=== PATIENT | female | born 1935 | race Two or more races ===

== ENCOUNTER 2016-11-20 12:00 | Inpatient (IN) | payer SELFPAY ==
[2016-11-20] VITALS (9 sets, daily range): BP systolic 120–210; BP diastolic 60–104
[~2016-11-20] VITALS: Ht 165.1 cm; Wt 65.8 kg
[~2016-11-20 12:00] MED LIST: Morphine Sulfate 2mg/ml Inj IVP ONE
--- NOTE | 2016-11-20 12:26 | Emergency Room Report ---
History of Present Illness General Chief Complaint: Altered Level of Consciousness Source: Family Member, EMS Present Illness HPI Patient presents with 2 problems. One is right thigh pain and the second is vomiting. It's uncertain how long this is been going on because she recently had right hip surgery. The daughter states that she is deaf and has dementia and therefore it's difficult to find out what the problem is. Before today she' s been eating but not very well. She also has pain when she urinates. She moved her bowels one hour before presenting to the emergency department. She denies any chest pain or shortness of breath. Daughter is asking for ointment for external genitalia. She was evaluated at [facility] on November [address] pulmonary angiogram done which was negative. She is deaf and has dementia. Daughter states she knows sign language (not certain what language). Daughter states she is also slightly more confused than usual. Apparently travelling and due to return Sunday. Allergies: Coded Allergies: No Known Allergies (Unverified , 11/20/16) Patient History Limited by: language barrier, medical condition Past Medical History: see triage record Past Surgical History: other - R hip surgery Social History: Denies: alcohol use, smoking Social History Narrative with daughter - travelling Reviewed Nursing Documentation: PMH: Agreed, PSxH: Agreed Nursing Documentation-PMH Past Medical History: No History, Except For Hx Diabetes: Yes History Of Psychiatric Problem: Yes - ALZHEIMER Review of Systems All Other Systems: limited Physical Exam Vital Signs Date Time Temp Pulse Resp B/P Pulse Ox O2 Delivery O2 Flow Rate FiO2 11/20/16 11:43 97.7 116 20 204/111 100 Room Air Sp02 EP Interpretation: reviewed, normal General Appearance: alert, mild distress - when touched by staff, other - frail Head: normocephalic Eyes: bilateral eye PERRL, bilateral eye normal inspection ENT: moist mucus membranes Neck: supple Respiratory: lungs clear, normal breath sounds Cardiovascular #1: regular rate, rhythm Cardiovascular #2: 2+ radial (R) Gastrointestinal: normal inspection, normal bowel sounds, non tender, no mass, non-distended Genitourinary: other - no gross rashes Musculoskeletal: back normal, normal range of motion, tender - R leg, hard to tell where Neurologic: alert, responsive, motor strength/tone normal, DTRs symmetric, sensory intact Psychiatric: depressed affect, anxious Skin: normal inspection, warm/dry Medical Decision Making Diagnostic Impression: Primary Impression: Persistent vomiting Additional Impressions: Right leg pain Dementia Qualified Codes: G30.9 - Alzheimer's disease, unspecified; F02.80 - Dementia in other diseases classified elsewhere without behavioral disturbance Leukocytosis Qualified Codes: D72.829 - Elevated white blood cell count, unspecified ER Course Patient with vomiting and R leg pain. Very complicated patient with language and neurologic limitations. Considerations: electrolyte abnormalities, GItis, pancreatitis, occult infection, acute NE amongst others. Evaluation with EKG, xrays, labs. IV hydration and zofran ordered. Also analgesia ordered. Non- invasive vasc study. Exam against thigh fracture. Consider strain, arthritis. Eval remarkable for leukocytosis. CXR - senile chest, abd - no obstruction (hip ), UA clear, Patient improved with treatment. Long discussion with court monitor. Laboratory Tests Test 11/20/16 12:30 11/21/16 05:20 White Blood Count 12.1 K/UL (4.8-10.8) H 11.7 K/UL (4.8-10.8) H Red Blood Count 4.65 M/UL (4.20-5.40) 3.89 M/UL (4.20-5.40) L Hemoglobin 13.0 G/DL (12.0-16.0) 11.5 G/DL (12.0-16.0) L Hematocrit 41.5 % (37.0-47.0) 35.7 % (37.0-47.0) L Mean Corpuscular Volume 89 FL (80-99) 92 FL (80-99) Mean Corpuscular Hemoglobin 28.0 PG (27.0-31.0) 29.5 PG (27.0-31.0) Mean Corpuscular Hemoglobin Concent 31.4 G/DL (32.0-36.0) L 32.1 G/DL (32.0-36.0) Red Cell Distribution Width 13.4 % (11.6-14.8) 14.1 % (11.6-14.8) Platelet Count 415 K/UL (150-450) 336 K/UL (150-450) Mean Platelet Volume 5.8 FL (6.5-10.1) L 5.5 FL (6.5-10.1) L Neutrophils (%) (Auto) 77.6 % (45.0-75.0) H 62.3 % (45.0-75.0) Lymphocytes (%) (Auto) 15.6 % (20.0-45.0) L 24.4 % (20.0-45.0) Monocytes (%) (Auto) 5.6 % (1.0-10.0) 7.1 % (1.0-10.0) Eosinophils (%) (Auto) 1.0 % (0.0-3.0) 5.7 % (0.0-3.0) H Basophils (%) (Auto) 0.3 % (0.0-2.0) 0.6 % (0.0-2.0) Prothrombin Time 11.1 SEC (9.30-11.50) Prothrombin Time INR 1.1 (0.9-1.1) PTT 25 SEC (23-33) Urine Color Pale yellow Urine Appearance Clear Urine pH 8 (4.5-8.0) Urine Specific [place] 1.010 (1.005-1.035) Urine Protein 2+ (NEGATIVE) H Urine Glucose (UA) Negative (NEGATIVE) Urine Ketones Negative (NEGATIVE) Urine Occult Blood Negative (NEGATIVE) Urine Nitrite Negative (NEGATIVE) Urine Bilirubin Negative (NEGATIVE) Urine Urobilinogen Normal MG/DL (0.0-1.0) Urine Leukocyte Esterase Negative (NEGATIVE) Urine RBC 0-2 /HPF (0 - 2) Urine WBC 0-2 /HPF (0 - 2) Urine Squamous Epithelial Cells Few /LPF (NONE/OCC) Urine Bacteria Few /HPF (NONE) Sodium Level 134 mEQ/L (135-145) L 141 mEQ/L (135-145) Potassium Level 3.8 mEQ/L (3.4-4.9) 3.6 mEQ/L (3.4-4.9) Chloride Level 92 mEQ/L (98-107) L 102 mEQ/L (98-107) Carbon Dioxide Level 30 mEQ/L (20-30) 31 mEQ/L (20-30) H Anion Gap 12 (5-15) 8 (5-15) Blood Urea Nitrogen 19 mg/dL (7-23) 23 mg/dL (7-23) Creatinine 0.8 mg/dL (0.5-0.9) 0.7 mg/dL (0.5-0.9) Estimate Glomerular Filtration Rate mL/min (>60) mL/min (>60) Glucose Level 267 mg/dL (74-106) H 110 mg/dL (74-106) #H Lactic Acid Level 1.20 mmol/L (0.66-2.22) Uric Acid 4.2 mg/dL (3.0-7.5) Calcium Level 9.2 mg/dL (8.6-10.2) 8.5 mg/dL (8.6-10.2) L Total Bilirubin 0.3 mg/dL (0.0-1.2) 0.2 mg/dL (0.0-1.2) Aspartate Amino Transferase (AST) 13 U/L (5-40) 10 U/L (5-40) Alanine Aminotransferase (ALT) 16 U/L (3-33) 12 U/L (3-33) Alkaline Phosphatase 117 U/L (35-104) H 103 U/L (35-104) Troponin I < 0.30 ng/mL (<=0.30) Pro-B-Type Natriuretic Peptide 1198 pg/mL (0-450) H Total Protein 7.3 g/dL (6.6-8.7) 6.3 g/dL (6.6-8.7) L Albumin 3.6 g/dL (3.5-5.2) 3.2 g/dL (3.5-5.2) L Globulin 3.7 g/dL 3.1 g/dL Albumin/Globulin Ratio 0.9 (1.0-2.7) L 1.0 (1.0-2.7) Lipase 28 U/L (< 60) Triglycerides Level 147 mg/dL (< 150) Cholesterol Level 127 mg/dL (< 200) LDL Cholesterol 70 mg/dL (60-99) HDL Cholesterol 28 mg/dL (> 60) Cholesterol/HDL Ratio 4.5 (3.3-4.4) H EKG Diagnostic Results Rate: normal Rhythm: NSR ST Segments: no acute changes Rhythm Strip Diag. Results EP Interpretation: yes Rhythm: NSR, no PVC's, no ectopy Chest X-Ray Diagnostic Results Chest X-Ray Diagnostic Results : Chest X-Ray Ordered: Yes # of Views/Limited/Complete: 1 View Indication: Other EP Interpretation: Yes Interpretation: no consolidation, no effusion, no pneumothorax, other - old gran disease Impression: No acute disease Interpreting ER Provider: signed Kory Dennis MD Other X-Ray Diagnostic Results Other X-Ray Diagnostic Results : X-Ray ordered: abd # of Views/Limited Vs Complete: 1 View Indication: Other EP Interpretation: Yes Interpretation: nonspecific bowel gas, no sbo, other - R hip Impression: No acute disease Interpreting ER Provider: signed Kory Dennis MD CT/MRI/US Diagnostic Results CT/MRI/US Diagnostic Results : Imaging Test Ordered: non-invasive vasc Impression bilat, no DVT Status: improved Disposition: ADMITTED INPATIENT Condition: Serious Kory Dennis M.D. Nov 20, 2016 12:26
[2016-11-20 12:55] LABS: BASOPHILS % (AUTO) 0.3 % (0.0-2.0); LYMPHOCYTES % (AUTO) 15.6 % (20.0-45.0); MEAN CORPUSCULAR HGB CONC 31.4 G/DL (32.0-36.0); MEAN CORPUSCULAR VOLUME 89 FL (80-99); MEAN PLATELET VOLUME 5.8 FL (6.5-10.1); MONOCYTES % (AUTO) 5.6 % (1.0-10.0); NEUTROPHILS % (AUTO) 77.6 % (45.0-75.0); PLATELET COUNT 415 K/UL (150-450); RED BLOOD COUNT 4.65 M/UL (4.20-5.40); RED CELL DISTRIBUTION WIDTH 13.4 % (11.6-14.8); WHITE BLOOD COUNT 12.1 K/UL (4.8-10.8)
[2016-11-20 13:01] LABS: APPEARANCE,URINE CLEAR; KETONES,URINE NEGATIVE (NEGATIVE); LEUKOCYTE ESTERASE ,URINE NEGATIVE (NEGATIVE); NITRITE,URINE NEGATIVE (NEGATIVE); PH,URINE 8 (4.5-8.0); PROTEIN,URINE 2+ (NEGATIVE); UROBILINOGEN,URINE NORMAL MG/DL (0.0-1.0)
[2016-11-20 13:06] LABS: INR 1.1 (0.9-1.1); PROTHROMBIN TIME 11.1 SEC (9.30-11.50)
[2016-11-20 13:10] LABS: TROPONIN I < 0.30 ng/mL (<=0.30)
[2016-11-20 13:14] LABS: ALANINE AMINOTRANSFERASE 16 U/L (3-33); ALBUMIN/GLOBULIN RATIO 0.9 (1.0-2.7); ANION GAP 12 (5-15); ASPARTATE AMINO TRANSFERASE 13 U/L (5-40); CALCIUM 9.2 mg/dL (8.6-10.2); CARBON DIOXIDE 30 mEQ/L (20-30); CHLORIDE 92 mEQ/L (98-107); CREATININE 0.8 mg/dL (0.5-0.9); HEMOLYSIS 10; LIPASE 28 U/L (< 60); POTASSIUM 3.8 mEQ/L (3.4-4.9); SODIUM 134 mEQ/L (135-145); TOTAL PROTEIN 7.3 g/dL (6.6-8.7)
[2016-11-20 13:18] LABS: BACTERIA,URINE FEW /HPF; RBC,URINE 0-2 /HPF (0 - 2); SQUAMOUS EPITHELIAL CELL,UR FEW /LPF (NONE/OCC); WBC,URINE 0-2 /HPF (0 - 2)
[2016-11-20] MEDS ORDERED: Morphine Sulfate 4mg/ml Inj IVP ONE (13:45)
[2016-11-20] MEDS ORDERED: ASPIR 8181 MG ORAL (14:24)
[2016-11-20] MEDS ORDERED: EXELON1 EACH TD (14:24)
[2016-11-20] MEDS ORDERED: LANTUS SOL100 UNIT/1 SUBQ (14:24)
[2016-11-20] MEDS ORDERED: LISINOPRIL5 MG ORAL (14:24)
[2016-11-20] MEDS ORDERED: LIPITOR40 MG ORAL (14:24)
[2016-11-20] MEDS ORDERED: Morphine Sulfate 2mg/ml Inj IVP PRN (15:30)
[2016-11-20] MEDS ORDERED: Mylanta II UD 30ml ORAL PRN (15:30)
[2016-11-20] MEDS ORDERED: LORazepam Inj 2mg/ml 1ml IV PRN (15:30)
[2016-11-20] MEDS ORDERED: Bacitracin Oint 15gm Tube TOPIC ONE (15:34)
[2016-11-20] MEDS ORDERED: Bacitracin Oint UD TOPIC ONE (15:45)
--- NOTE | 2016-11-20 16:25 | Diagnostic Imaging Report ---
Indication: Chest pain Technique: One view of the chest Comparison: None Findings: There is diffuse bilateral mild interstitial prominence and central bronchial wall thickening, acuity indeterminate. Calcifications are seen in the left pulmonary hilum and left paratracheal region. There is an old healed fracture deformity left shoulder. No acute infiltrates or effusions. Impression: Bilateral mild interstitial prominence and central bronchial wall thickening, acuity indeterminate the suspect on the basis of chronic senescent changes. Correlate with clinical findings Evidence of old granulomatous disease within the pulmonary island Old healed left shoulder fracture
--- NOTE | 2016-11-20 18:57 | History and Physical ---
History of Present Illness General Date patient seen: Nov 20, 2016 Reason for Hospitalization: Altered Level of Consciousness Present Illness HPI 81 year old female with hx of dementia, DM, HTN, brought in with CC of vomiting and hip pain. Before today she's been eating but not very well. She also has pain when she urinates. She was evaluated at [facility] on November [address] pulmonary angiogram done which was negative. Allergies: Coded Allergies: No Known Allergies (Unverified , 11/20/16) Medication History Scheduled Aspirin* (Aspir 81*), 81 MG ORAL DAILY, (Reported) Atorvastatin Calcium* (Lipitor*), Unknown Dose ORAL BEDTIME, (Reported) Escitalopram Oxalate (Escitalopram Oxalate*), 10 MG ORAL DAILY, (Reported) Insulin Glargine (Lantus), Unknown Dose SUBQ BEDTIME, (Reported) Lisinopril (Lisinopril*), Unknown Dose ORAL DAILY, (Reported) Miscellaneous Medications Rivastigmine (Exelon), Unknown Dose TD, (Reported) Patient History Healthcare decision maker Resuscitation status Advanced Directive on File Past Medical/Surgical History Past Medical/Surgical History: (1) Diabetes mellitus (2) Hypertension Review of Systems All Other Systems: negative except mentioned in HPI Physical Exam General Appearance: cachetic Lines, tubes and drains: peripheral, central line HEENT: normocephalic, atraumatic Neck: non-tender, normal alignment Respiratory/Chest: chest wall non-tender, normal breath sounds Cardiovascular/Chest: normal peripheral pulses, normal rate Abdomen: normal bowel sounds Last 24 Hour Vital Signs Date Time Temp Pulse Resp B/P Pulse Ox O2 Delivery O2 Flow Rate FiO2 11/20/16 18:35 98.0 83 20 171/88 100 Room Air 11/20/16 18:16 98.0 81 16 154/90 98 Room Air 11/20/16 18:10 98.2 83 18 154/90 100 Nasal Cannula 11/20/16 15:00 74 16 120/100 98 Room Air 11/20/16 14:45 77 16 135/60 100 Nasal Cannula 11/20/16 14:30 77 15 146/65 90 Room Air 11/20/16 14:09 76 18 186/90 98 Room Air 11/20/16 14:09 181/67 11/20/16 13:40 98.0 11/20/16 13:00 78 18 210/104 98 Room Air 11/20/16 12:00 98.0 70 20 190/88 96 Room Air 11/20/16 11:43 97.7 116 20 204/111 100 Room Air Laboratory Tests Test 11/20/16 12:30 White Blood Count 12.1 K/UL (4.8-10.8) H Red Blood Count 4.65 M/UL (4.20-5.40) Hemoglobin 13.0 G/DL (12.0-16.0) Hematocrit 41.5 % (37.0-47.0) Mean Corpuscular Volume 89 FL (80-99) Mean Corpuscular Hemoglobin 28.0 PG (27.0-31.0) Mean Corpuscular Hemoglobin Concent 31.4 G/DL (32.0-36.0) L Red Cell Distribution Width 13.4 % (11.6-14.8) Platelet Count 415 K/UL (150-450) Mean Platelet Volume 5.8 FL (6.5-10.1) L Neutrophils (%) (Auto) 77.6 % (45.0-75.0) H Lymphocytes (%) (Auto) 15.6 % (20.0-45.0) L Monocytes (%) (Auto) 5.6 % (1.0-10.0) Eosinophils (%) (Auto) 1.0 % (0.0-3.0) Basophils (%) (Auto) 0.3 % (0.0-2.0) Prothrombin Time 11.1 SEC (9.30-11.50) Prothromb Time International Ratio 1.1 (0.9-1.1) Activated Partial Thromboplast Time 25 SEC (23-33) Urine Color Pale yellow Urine Appearance Clear Urine pH 8 (4.5-8.0) Urine Specific [place] 1.010 (1.005-1.035) Urine Protein 2+ (NEGATIVE) H Urine Glucose (UA) Negative (NEGATIVE) Urine Ketones Negative (NEGATIVE) Urine Occult Blood Negative (NEGATIVE) Urine Nitrite Negative (NEGATIVE) Urine Bilirubin Negative (NEGATIVE) Urine Urobilinogen Normal MG/DL (0.0-1.0) Urine Leukocyte Esterase Negative (NEGATIVE) Urine RBC 0-2 /HPF (0 - 2) Urine WBC 0-2 /HPF (0 - 2) Urine Squamous Epithelial Cells Few /LPF (NONE/OCC) Urine Bacteria Few /HPF (NONE) Sodium Level 134 mEQ/L (135-145) L Potassium Level 3.8 mEQ/L (3.4-4.9) Chloride Level 92 mEQ/L (98-107) L Carbon Dioxide Level 30 mEQ/L (20-30) Anion Gap 12 (5-15) Blood Urea Nitrogen 19 mg/dL (7-23) Creatinine 0.8 mg/dL (0.5-0.9) Estimat Glomerular Filtration Rate mL/min (>60) Glucose Level 267 mg/dL (74-106) H Lactic Acid Level 1.20 mmol/L (0.66-2.22) Uric Acid 4.2 mg/dL (3.0-7.5) Calcium Level 9.2 mg/dL (8.6-10.2) Total Bilirubin 0.3 mg/dL (0.0-1.2) Aspartate Amino Transf (AST/SGOT) 13 U/L (5-40) Alanine Aminotransferase (ALT/SGPT) 16 U/L (3-33) Alkaline Phosphatase 117 U/L (35-104) H Troponin I < 0.30 ng/mL (<=0.30) Pro-B-Type Natriuretic Peptide 1198 pg/mL (0-450) H Total Protein 7.3 g/dL (6.6-8.7) Albumin 3.6 g/dL (3.5-5.2) Globulin 3.7 g/dL Albumin/Globulin Ratio 0.9 (1.0-2.7) L Lipase 28 U/L (< 60) Height (Feet): 5 Height (Inches): 5.00 Weight (Pounds): 145 Medications Current Medications Medications (Trade) Dose Ordered Sig/Maggi Route PRN Reason Start Time Stop Time Status Last Admin Dose Admin Acetaminophen (Tylenol) 650 mg Q4H PRN ORAL T>100.5 11/20/16 15:30 12/20/16 15:29 Al Hydroxide/Mg Hydroxide (Mylanta II) 30 ml Q6H PRN ORAL dyspepsia 11/20/16 15:30 12/20/16 15:29 Dextrose (Dextrose 50%) STAT PRN IV Hypoglycemia 11/20/16 15:30 12/20/16 15:29 Heparin Sodium (Porcine) (Heparin 5000 units/ml) 5,000 units EVERY 12 HOURS SUBQ 11/20/16 21:00 12/20/16 20:59 Insulin Aspart (NovoLOG) BEFORE MEALS AND HS SUBQ 11/20/16 21:00 12/20/16 20:59 Lisinopril (Zestril) 5 mg DAILY ORAL 11/21/16 09:00 12/21/16 08:59 Lorazepam (Ativan 2mg/ml 1ml) 0.5 mg Q4H PRN IV For Anxiety 11/20/16 15:30 11/27/16 15:29 Morphine Sulfate (Morphine Sulfate) 1 mg Q4H PRN IVP PAIN 4-10 11/20/16 15:30 11/27/16 15:29 Ondansetron HCl (Zofran) 4 mg Q6H PRN IVP Nausea & Vomiting 11/20/16 15:30 12/20/16 15:29 Polyethylene Glycol (Miralax) 17 gm HSPRN PRN ORAL Constipation 11/20/16 21:00 12/20/16 20:59 Sodium Chloride (Sodium Chloride 1000ml bag) 1,000 ml @ 200 mls/hr Q5H IV 11/20/16 12:00 12/20/16 11:59 11/20/16 12:49 Zolpidem Tartrate (Ambien) 5 mg HSPRN PRN ORAL Insomnia 11/20/16 21:00 12/20/16 20:59 Assessment/Plan Problem List: (1) Acute encephalopathy ICD Codes: G93.40 - Encephalopathy, unspecified SNOMED: 1977963 (2) Sepsis ICD Codes: A41.9 - Sepsis, unspecified organism SNOMED: 02047365 (3) UTI (urinary tract infection) ICD Codes: N39.0 - Urinary tract infection, site not specified SNOMED: 98407949 Assessment/Plan marquez culture iv antibiotics check cultures neuro evaluation dvt prophylaxis WILMA ARECHIGA Nov 20, 2016 18:57
[2016-11-20] MEDS: Heparin 5000 units/ml inj SUBQ SCH (20:42)
[2016-11-20] MEDS: NovoLOG Insulin Flexpen SUBQ SCH (20:43)
[2016-11-20] MEDS ORDERED: Zolpidem 5mg tab ORAL PRN (21:00)
[2016-11-20] MEDS ORDERED: Miralax 17gm pkt ORAL PRN (21:00)
[2016-11-20] MEDS ORDERED: ESCITALOPRAM OX10 MG ORAL (21:23)
[2016-11-21] VITALS (7 sets, daily range): BP systolic 137–207; BP diastolic 60–108
[2016-11-21 06:21] LABS: BASOPHILS % (AUTO) 0.6 % (0.0-2.0); EOSINOPHILS % (AUTO) 5.7 % (0.0-3.0); LYMPHOCYTES % (AUTO) 24.4 % (20.0-45.0); MEAN CORPUSCULAR HEMOGLOBIN 29.5 PG (27.0-31.0); MEAN CORPUSCULAR HGB CONC 32.1 G/DL (32.0-36.0); MEAN CORPUSCULAR VOLUME 92 FL (80-99); MEAN PLATELET VOLUME 5.5 FL (6.5-10.1); MONOCYTES % (AUTO) 7.1 % (1.0-10.0); NEUTROPHILS % (AUTO) 62.3 % (45.0-75.0); PLATELET COUNT 336 K/UL (150-450); RED BLOOD COUNT 3.89 M/UL (4.20-5.40); RED CELL DISTRIBUTION WIDTH 14.1 % (11.6-14.8); WHITE BLOOD COUNT 11.7 K/UL (4.8-10.8)
[2016-11-21] MEDS: NovoLOG Insulin Flexpen SUBQ SCH ×4 (06:22→20:54)
[2016-11-21 06:32] LABS: ALANINE AMINOTRANSFERASE 12 U/L (3-33); ANION GAP 8 (5-15); ASPARTATE AMINO TRANSFERASE 10 U/L (5-40); CALCIUM 8.5 mg/dL (8.6-10.2); CARBON DIOXIDE 31 mEQ/L (20-30); CHLORIDE 102 mEQ/L (98-107); CHOLESTEROL 127 mg/dL (< 200); CHOLESTEROL/HDL RATIO 4.5 (3.3-4.4); CREATININE 0.7 mg/dL (0.5-0.9); HEMOLYSIS 3; LDL CHOLESTEROL (CALC.) 70 mg/dL (60-99); POTASSIUM 3.6 mEQ/L (3.4-4.9); SODIUM 141 mEQ/L (135-145); TOTAL PROTEIN 6.3 g/dL (6.6-8.7)
[2016-11-21] MEDS: Lisinopril 2.5mg tab ORAL SCH (09:25)
[2016-11-21] MEDS: Heparin 5000 units/ml inj SUBQ SCH ×2 (09:27→20:53)
--- NOTE | 2016-11-21 13:19 | Pulmonology Progress Note ---
Assessment/Plan Problems: (1) Acute encephalopathy (2) Sepsis (3) UTI (urinary tract infection) Assessment/Plan decrease IV fluid continue abx check cultures neuro evaluation MRI of brain Subjective ROS Limited/Unobtainable: No Constitutional: Reports: no symptoms HEENT: Repors: no symptoms Allergies: Coded Allergies: No Known Allergies (Unverified , 11/20/16) Objective Last 24 Hour Vital Signs Date Time Temp Pulse Resp B/P Pulse Ox O2 Delivery O2 Flow Rate FiO2 11/21/16 11:25 97.4 82 19 180/78 100 Nasal Cannula 2.0 11/21/16 10:15 172/79 11/21/16 09:58 207/108 11/21/16 09:25 207/108 11/21/16 07:48 99.9 88 19 207/108 99 Nasal Cannula 2.0 11/21/16 04:00 98.5 90 20 164/81 100 Nasal Cannula 3.0 11/21/16 00:00 97.9 87 20 154/60 100 Nasal Cannula 3.0 11/20/16 20:00 98.4 95 20 143/76 100 Nasal Cannula 3.0 11/20/16 18:35 98.0 83 20 171/88 100 Room Air 11/20/16 18:16 98.0 81 16 154/90 98 Room Air 11/20/16 18:10 98.2 83 18 154/90 100 Nasal Cannula 11/20/16 15:00 74 16 120/100 98 Room Air 11/20/16 14:45 77 16 135/60 100 Nasal Cannula 11/20/16 14:30 77 15 146/65 90 Room Air 11/20/16 14:09 76 18 186/90 98 Room Air 11/20/16 14:09 181/67 11/20/16 13:40 98.0 Intake and Output 11/20/16 11/21/16 19:00 07:00 Intake Total 1600 ml Output Total 425 ml Balance 1175 ml Intake IV Total 1600 ml Output Urine Total 425 ml # Voids 1 General Appearance: WD/WN HEENT: normocephalic, atraumatic Respiratory/Chest: chest wall non-tender, lungs clear Breasts: no masses Cardiovascular: normal peripheral pulses Abdomen: normal bowel sounds, no organomegaly Genitourinary: normal external genitalia Extremities: no clubbing Skin: no rash Laboratory Tests 11/21/16 05:20: White Blood Count 11.7H, Red Blood Count 3.89L, Hemoglobin 11.5L, Hematocrit 35.7L, Mean Corpuscular Volume 92, Mean Corpuscular Hemoglobin 29.5, Mean Corpuscular Hemoglobin Concent 32.1, Red Cell Distribution Width 14.1, Platelet Count 336, Mean Platelet Volume 5.5L, Neutrophils (%) (Auto) 62.3, Lymphocytes ( %) (Auto) 24.4, Monocytes (%) (Auto) 7.1, Eosinophils (%) (Auto) 5.7H, Basophils (%) (Auto) 0.6, Sodium Level 141, Potassium Level 3.6, Chloride Level 102, Carbon Dioxide Level 31H, Anion Gap 8, Blood Urea Nitrogen 23, Creatinine 0.7, Estimat Glomerular Filtration Rate , Glucose Level 110#H, Calcium Level 8.5L, Total Bilirubin 0.2, Aspartate Amino Transf (AST/SGOT) 10, Alanine Aminotransferase (ALT/SGPT) 12, Alkaline Phosphatase 103, Total Protein 6.3L, Albumin 3.2L, Globulin 3.1, Albumin/Globulin Ratio 1.0, Triglycerides Level 147 , Cholesterol Level 127, LDL Cholesterol 70, HDL Cholesterol 28, Cholesterol/ HDL Ratio 4.5H Current Medications Medications (Trade) Dose Ordered Sig/Maggi Route PRN Reason Start Time Stop Time Status Last Admin Dose Admin Acetaminophen (Tylenol) 650 mg Q4H PRN ORAL T>100.5 11/20/16 15:30 12/20/16 15:29 Al Hydroxide/Mg Hydroxide (Mylanta II) 30 ml Q6H PRN ORAL dyspepsia 11/20/16 15:30 12/20/16 15:29 Clonidine HCl (Catapres) 0.1 mg Q4H PRN ORAL For High Blood Pressure 11/21/16 09:40 12/21/16 09:39 11/21/16 09:58 Dextrose (Dextrose 50%) STAT PRN IV Hypoglycemia 11/20/16 15:30 12/20/16 15:29 Heparin Sodium (Porcine) (Heparin 5000 units/ml) 5,000 units EVERY 12 HOURS SUBQ 11/20/16 21:00 12/20/16 20:59 11/21/16 09:27 Insulin Aspart (NovoLOG) BEFORE MEALS AND HS SUBQ 11/20/16 21:00 12/20/16 20:59 11/20/16 20:43 Lisinopril (Zestril) 5 mg DAILY ORAL 11/21/16 09:00 12/21/16 08:59 11/21/16 09:25 Lorazepam (Ativan 2mg/ml 1ml) 0.5 mg Q4H PRN IV For Anxiety 11/20/16 15:30 11/27/16 15:29 Morphine Sulfate (Morphine Sulfate) 1 mg Q4H PRN IVP PAIN 4-10 11/20/16 15:30 11/27/16 15:29 Ondansetron HCl (Zofran) 4 mg Q6H PRN IVP Nausea & Vomiting 11/20/16 15:30 12/20/16 15:29 Polyethylene Glycol (Miralax) 17 gm HSPRN PRN ORAL Constipation 11/20/16 21:00 12/20/16 20:59 Sodium Chloride (Sodium Chloride 1000ml bag) 1,000 ml @ 200 mls/hr Q5H IV 11/20/16 12:00 12/20/16 11:59 11/21/16 08:29 Zolpidem Tartrate (Ambien) 5 mg HSPRN PRN ORAL Insomnia 11/20/16 21:00 12/20/16 20:59 WILMA ARECHIGA Nov 21, 2016 13:19
--- NOTE | 2016-11-21 14:26 | GI Initial Consult Note ---
Coby Hernandez N.P. 11/21/16 1426: History of Present Illness General Date patient seen: Nov 21, 2016 Time patient seen: 11:00 Reason for Hospitalization: Altered Level of Consciousness Referring physician: WILMA WOLFE Reason for Consultation: VOMITTING Present Illness HPI Patient presents with 2 problems. One is right thigh pain and the second is vomiting. It's uncertain how long this is been going on because she recently had right hip surgery. The daughter states that she is deaf and has dementia and therefore it's difficult to find out what the problem is. Before today she' s been eating but not very well. She also has pain when she urinates. She moved her bowels one hour before presenting to the emergency department. She denies any chest pain or shortness of breath. Daughter is asking for ointment for external genitalia. She was evaluated at [facility] on November [address] pulmonary angiogram done which was negative. She is deaf and has dementia. Daughter states she knows sign language (not certain what language). Daughter states she is also slightly more confused than usual. Apparently travelling and due to return Sunday. GI Consult. HPI as noted above. GI consulted for reports of emesis. DAVID mercado, pt seen on floor with daughter by bedside. Patient presents today with mild leukocytosis, anemia and hypoalbuminemia. Unknown history of endoscopic procedures. Daughter reports nausea only without no vomiting. Denies any diarrhea or excessive weight loss. Home Meds Reported Medications [gliclazide] No Conflict Check, 60 MG 11/23/16 Lisinopril* (ZESTRIL*) 10 Mg Tablet, 10 MG ORAL DAILY, TAB 11/23/16 Unable to Obtain Medications (UNABLE TO OBTAIN MEDS) 1 Ea Ea 11/23/16 Escitalopram Oxalate (ESCITALOPRAM OXALATE*) 10 Mg Tablet, 10 MG ORAL DAILY, # 30 TAB 0 Refills 11/20/16 Rivastigmine (EXELON) 1 Each Patch.td24, TD, PATCH 11/20/16 Aspirin* (ASPIR 81*) 81 Mg Tablet.dr, 81 MG ORAL DAILY, TAB 11/20/16 Lisinopril (LISINOPRIL*) 5 Mg Tablet, ORAL DAILY, TAB 11/20/16 Atorvastatin Calcium* (LIPITOR*) 40 Mg Tablet, ORAL BEDTIME, #30 TAB 0 Refills 11/20/16 Insulin Glargine (LANTUS) 100 Unit/1 Ml Insuln.pen, SUBQ BEDTIME, #1 EA 0 Refills 11/20/16 Med list reviewed/reconciled: Yes Allergies: Coded Allergies: No Known Allergies (Unverified , 11/20/16) Patient History Limited by: medical condition History Provided By: Family Member PMH Narrative Limited by: language barrier, medical condition Past Medical History: see triage record Past Surgical History: other - R hip surgery Social History: Denies: alcohol use, smoking Social History Narrative with daughter - travelling Reviewed Nursing Documentation: PMH: Agreed, PSxH: Agreed Nursing Documentation-PMH Past Medical History: No History, Except For Hx Diabetes: Yes History Of Psychiatric Problem: Yes - ALZHEIMER Social History: Denies: alcohol use, drug use, other, smoking Review of Systems All Other Systems: limited Physical Exam Vital Signs Date Time Temp Pulse Resp B/P Pulse Ox O2 Delivery O2 Flow Rate FiO2 11/20/16 11:43 97.7 116 20 204/111 100 Room Air 11/20/16 20:00 3.0 Sp02 EP Interpretation: reviewed Labs Laboratory Tests Test 11/21/16 05:20 White Blood Count 11.7 K/UL (4.8-10.8) H Red Blood Count 3.89 M/UL (4.20-5.40) L Hemoglobin 11.5 G/DL (12.0-16.0) L Hematocrit 35.7 % (37.0-47.0) L Mean Corpuscular Volume 92 FL (80-99) Mean Corpuscular Hemoglobin 29.5 PG (27.0-31.0) Mean Corpuscular Hemoglobin Concent 32.1 G/DL (32.0-36.0) Red Cell Distribution Width 14.1 % (11.6-14.8) Platelet Count 336 K/UL (150-450) Mean Platelet Volume 5.5 FL (6.5-10.1) L Neutrophils (%) (Auto) 62.3 % (45.0-75.0) Lymphocytes (%) (Auto) 24.4 % (20.0-45.0) Monocytes (%) (Auto) 7.1 % (1.0-10.0) Eosinophils (%) (Auto) 5.7 % (0.0-3.0) H Basophils (%) (Auto) 0.6 % (0.0-2.0) Sodium Level 141 mEQ/L (135-145) Potassium Level 3.6 mEQ/L (3.4-4.9) Chloride Level 102 mEQ/L (98-107) Carbon Dioxide Level 31 mEQ/L (20-30) H Anion Gap 8 (5-15) Blood Urea Nitrogen 23 mg/dL (7-23) Creatinine 0.7 mg/dL (0.5-0.9) Estimat Glomerular Filtration Rate mL/min (>60) Glucose Level 110 mg/dL (74-106) #H Calcium Level 8.5 mg/dL (8.6-10.2) L Total Bilirubin 0.2 mg/dL (0.0-1.2) Aspartate Amino Transf (AST/SGOT) 10 U/L (5-40) Alanine Aminotransferase (ALT/SGPT) 12 U/L (3-33) Alkaline Phosphatase 103 U/L (35-104) Total Protein 6.3 g/dL (6.6-8.7) L Albumin 3.2 g/dL (3.5-5.2) L Globulin 3.1 g/dL Albumin/Globulin Ratio 1.0 (1.0-2.7) Triglycerides Level 147 mg/dL (< 150) Cholesterol Level 127 mg/dL (< 200) LDL Cholesterol 70 mg/dL (60-99) HDL Cholesterol 28 mg/dL (> 60) Cholesterol/HDL Ratio 4.5 (3.3-4.4) H General Appearance: well appearing, no apparent distress, alert Head: normocephalic EENT: PERRL/EOMI, normal ENT inspection Neck: full range of motion, supple Respiratory: normal breath sounds, no respiratory distress Cardiovascular: normal peripheral pulses, normal rate Gastrointestinal: normal inspection, soft, tenderness Rectal: deferred Musculoskeletal: back normal Neurologic: alert Skin: normal inspection, normal color, no rash, warm/dry Lymphatic: normal inspection, no adenopathy Current Medications Current Medications Medications (Trade) Dose Ordered Sig/Maggi Route PRN Reason Start Time Stop Time Status Last Admin Dose Admin Acetaminophen (Tylenol) 650 mg Q4H PRN ORAL T>100.5 11/20/16 15:30 12/20/16 15:29 Al Hydroxide/Mg Hydroxide (Mylanta II) 30 ml Q6H PRN ORAL dyspepsia 11/20/16 15:30 12/20/16 15:29 Clonidine HCl 0.1 mg 0.1 mg Q4H PRN ORAL For High Blood Pressure 11/21/16 09:40 12/21/16 09:39 11/21/16 09:58 Dextrose (Dextrose 50%) STAT PRN IV Hypoglycemia 11/20/16 15:30 12/20/16 15:29 Heparin Sodium (Porcine) (Heparin 5000 units/ml) 5,000 units EVERY 12 HOURS SUBQ 11/20/16 21:00 12/20/16 20:59 11/21/16 09:27 Insulin Aspart (NovoLOG) BEFORE MEALS AND HS SUBQ 11/20/16 21:00 12/20/16 20:59 11/20/16 20:43 Lisinopril (Zestril) 5 mg DAILY ORAL 11/21/16 09:00 12/21/16 08:59 11/21/16 09:25 Lorazepam (Ativan 2mg/ml 1ml) 0.5 mg Q4H PRN IV For Anxiety 11/20/16 15:30 11/27/16 15:29 11/21/16 13:57 Morphine Sulfate (Morphine Sulfate) 1 mg Q4H PRN IVP PAIN 4-10 11/20/16 15:30 11/27/16 15:29 Ondansetron HCl (Zofran) 4 mg Q6H PRN IVP Nausea & Vomiting 11/20/16 15:30 12/20/16 15:29 Piperacillin Sod/ Tazobactam Sod/ Dextrose (Zosyn/D5W) 110 ml @ 27.5 mls/hr EVERY 8 HOURS IVPB 11/21/16 14:00 11/26/16 13:59 Polyethylene Glycol (Miralax) 17 gm HSPRN PRN ORAL Constipation 11/20/16 21:00 12/20/16 20:59 Sodium Chloride 1,000 ml @ 75 mls/hr [id number] IV 11/22/16 13:30 12/22/16 13:29 Zolpidem Tartrate (Ambien) 5 mg HSPRN PRN ORAL Insomnia 11/20/16 21:00 12/20/16 20:59 GI: Plan Problems: (1) Nausea (2) Anemia (3) Dehydration (4) Diabetes mellitus Plan symptomatic treatment at this time zofran prn, consider reglan if patient has persistent vomiting ADA diet IV hydration and electrolyte correction pain mgmt H2B fu labs Discussed with Dr. Alvarez. Thank you for referring this patient, we will follow. CARRI ALVAREZ 11/24/16 1025: History of Present Illness General Reason for Hospitalization: Altered Level of Consciousness Present Illness Home Meds Reported Medications [gliclazide] No Conflict Check, 60 MG 11/23/16 Lisinopril* (ZESTRIL*) 10 Mg Tablet, 10 MG ORAL DAILY, TAB 11/23/16 Unable to Obtain Medications (UNABLE TO OBTAIN MEDS) 1 Ea Ea 11/23/16 Escitalopram Oxalate (ESCITALOPRAM OXALATE*) 10 Mg Tablet, 10 MG ORAL DAILY, # 30 TAB 0 Refills 11/20/16 Rivastigmine (EXELON) 1 Each Patch.td24, TD, PATCH 11/20/16 Aspirin* (ASPIR 81*) 81 Mg Tablet.dr, 81 MG ORAL DAILY, TAB 11/20/16 Lisinopril (LISINOPRIL*) 5 Mg Tablet, ORAL DAILY, TAB 11/20/16 Atorvastatin Calcium* (LIPITOR*) 40 Mg Tablet, ORAL BEDTIME, #30 TAB 0 Refills 11/20/16 Insulin Glargine (LANTUS) 100 Unit/1 Ml Insuln.pen, SUBQ BEDTIME, #1 EA 0 Refills 11/20/16 Allergies: Coded Allergies: No Known Allergies (Unverified , 11/20/16) GI: Plan Plan The patient was seen and examined at bedside and all new and available data was reviewed in the patients chart. I agree with the above findings, impression and plan. (Patient seen earlier today. Signature stamp does not reflect patient encounter time.). -Gilma Braga MDh Robby N.PAbraham Nov 21, 2016 14:26 CARRI ALVAREZ Nov 24, 2016 10:25
[2016-11-21] MEDS: Piperacillin/Tazobactam 3.375 GM in D5W 110 ML IVPB SCH ×2 (15:24→20:52)
--- NOTE | 2016-11-21 15:53 | Diagnostic Imaging Report ---
Indication: 81-year-old female inpatient with altered mental status and dementia Technique: sagittal T1 fast spin echo, axial T1 and T2 FLAIR PROPELLER, axial T2 FS PROPELLER, T2* GRE, axial diffusion weighted images, post contrast axial and coronal T1 FLAIR PROPELLER images. ADC and exponential ADC maps generated Comparison: None Findings: . No abnormal areas of restricted diffusion to suggest acute infarction. No acute hemorrhage or edema. There is a punctate focus of susceptibility artifact in the right basal ganglia. No mass effect nor midline shift. No abnormal contrast enhancement. There is age-related enlargement of the ventricles and extra-axial CSF spaces. There is considerable periventricular deep white matter chronic ischemic change. 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 There is a smaller old lacunar infarct in the right external capsule region.. There is evidence of prior bilateral cataract surgery. There is ethmoid and sphenoid sinus disease. Impression: Negative for acute intracranial bleed, mass effect, infarct, or contrast enhancing lesion Chronic and age-related changes, as described Small punctate focus of susceptibility artifact in the right basal ganglia region. Probably from physiologic basal ganglia calcification ossification, but also could indicate an old microbleed Old lacunar infarcts, as described Sinus disease
--- NOTE | 2016-11-21 16:50 | Cardiology Report ---
APPROVED REPORT EKG Measurement Heart [id number] Normal sinus rhythm Minimal voltage criteria for LVH, may be normal variant Possible Anterior infarct, age undetermined Abnormal ECG
[2016-11-22] VITALS (7 sets, daily range): BP systolic 118–185; BP diastolic 64–89
[2016-11-22] MEDS: Piperacillin/Tazobactam 3.375 GM in D5W 110 ML IVPB SCH ×2 (05:18→14:34)
[2016-11-22] MEDS: NovoLOG Insulin Flexpen SUBQ SCH ×3 (06:30→16:46)
[2016-11-22 07:22] LABS: BASOPHILS % (AUTO) 0.4 % (0.0-2.0); EOSINOPHILS % (AUTO) 3.3 % (0.0-3.0); MEAN CORPUSCULAR HEMOGLOBIN 28.8 PG (27.0-31.0); MEAN CORPUSCULAR HGB CONC 31.4 G/DL (32.0-36.0); MEAN CORPUSCULAR VOLUME 92 FL (80-99); MEAN PLATELET VOLUME 5.3 FL (6.5-10.1); MONOCYTES % (AUTO) 4.5 % (1.0-10.0); NEUTROPHILS % (AUTO) 80.8 % (45.0-75.0); PLATELET COUNT 349 K/UL (150-450); RED BLOOD COUNT 4.06 M/UL (4.20-5.40); RED CELL DISTRIBUTION WIDTH 13.7 % (11.6-14.8); WHITE BLOOD COUNT 15.4 K/UL (4.8-10.8)
[2016-11-22 07:26] LABS: ALANINE AMINOTRANSFERASE 12 U/L (3-33); ALBUMIN/GLOBULIN RATIO 0.9 (1.0-2.7); ANION GAP 13 (5-15); ASPARTATE AMINO TRANSFERASE 13 U/L (5-40); CALCIUM 8.8 mg/dL (8.6-10.2); CARBON DIOXIDE 27 mEQ/L (20-30); CHLORIDE 97 mEQ/L (98-107); CREATININE 0.7 mg/dL (0.5-0.9); HEMOLYSIS 6; MAGNESIUM 1.5 mg/dL (1.7-2.5); PHOSPHORUS 3.1 mg/dL (2.5-4.8); POTASSIUM 3.4 mEQ/L (3.4-4.9); SODIUM 137 mEQ/L (135-145); TOTAL PROTEIN 6.5 g/dL (6.6-8.7)
[2016-11-22] MEDS: Lisinopril 2.5mg tab ORAL SCH (08:12)
[2016-11-22] MEDS: Heparin 5000 units/ml inj SUBQ SCH (08:16)
--- NOTE | 2016-11-22 10:46 | GI Progress Note ---
Assessment/Plan Problems: (1) Dementia ICD Codes: F03.90 - Unspecified dementia without behavioral disturbance SNOMED: 27462891 Qualifiers: Qualified Codes: G30.9 - Alzheimer's disease, unspecified; F02.80 - Dementia in other diseases classified elsewhere without behavioral disturbance (2) Dehydration ICD Codes: E86.0 - Dehydration SNOMED: 58732403 (3) Anemia ICD Codes: D64.9 - Anemia, unspecified SNOMED: 967796119 (4) Nausea ICD Codes: R11.0 - Nausea SNOMED: 501080471 (5) Diabetes mellitus ICD Codes: E11.9 - Type 2 diabetes mellitus without complications SNOMED: 02184832 Status: stable Status Narrative Discussed with Dr. Ward. Assessment/Plan symptomatic treatment at this time zofran prn, consider reglan if patient has persistent vomiting ADA diet IV hydration and electrolyte correction pain mgmt H2B fu labs The patient was seen and examined at bedside and all new and available data was reviewed in the patients chart. I agree with the above findings, impression and plan. (Patient seen earlier today. Signature stamp does not reflect patient encounter time.). -Phi Ward MD Subjective Subjective no vomiting Objective Last 24 Hour Vital Signs Date Time Temp Pulse Resp B/P Pulse Ox O2 Delivery O2 Flow Rate FiO2 11/22/16 08:12 165/78 11/22/16 08:00 98.9 90 18 165/78 98 Nasal Cannula 11/22/16 04:00 98.4 84 18 183/89 100 Nasal Cannula 2.0 11/22/16 00:32 98.1 78 17 168/77 100 Nasal Cannula 2.0 11/22/16 00:19 168/77 11/21/16 21:43 Nasal Cannula 2.0 11/21/16 21:42 100 Nasal Cannula 2.0 11/21/16 20:06 98.8 75 18 137/67 100 Nasal Cannula 2.0 11/21/16 15:59 98.1 88 19 155/61 100 Nasal Cannula 2.0 11/21/16 11:25 97.4 82 19 180/78 100 Nasal Cannula 2.0 Intake and Output 11/21/16 11/22/16 19:00 07:00 Intake Total 440 ml 350.0 ml Output Total 800 ml Balance -360 ml 350.0 ml Intake Oral 440 ml 240 ml IV Total 110.0 ml Output Urine Total 800 ml # Voids 1 2 Laboratory Tests Test 11/22/16 04:50 White Blood Count 15.4 K/UL (4.8-10.8) H Red Blood Count 4.06 M/UL (4.20-5.40) L Hemoglobin 11.7 G/DL (12.0-16.0) L Hematocrit 37.3 % (37.0-47.0) Mean Corpuscular Volume 92 FL (80-99) Mean Corpuscular Hemoglobin 28.8 PG (27.0-31.0) Mean Corpuscular Hemoglobin Concent 31.4 G/DL (32.0-36.0) L Red Cell Distribution Width 13.7 % (11.6-14.8) Platelet Count 349 K/UL (150-450) Mean Platelet Volume 5.3 FL (6.5-10.1) L Neutrophils (%) (Auto) 80.8 % (45.0-75.0) H Lymphocytes (%) (Auto) 11.0 % (20.0-45.0) L Monocytes (%) (Auto) 4.5 % (1.0-10.0) Eosinophils (%) (Auto) 3.3 % (0.0-3.0) H Basophils (%) (Auto) 0.4 % (0.0-2.0) Sodium Level 137 mEQ/L (135-145) Potassium Level 3.4 mEQ/L (3.4-4.9) Chloride Level 97 mEQ/L (98-107) L Carbon Dioxide Level 27 mEQ/L (20-30) Anion Gap 13 (5-15) Blood Urea Nitrogen 18 mg/dL (7-23) Creatinine 0.7 mg/dL (0.5-0.9) Estimat Glomerular Filtration Rate mL/min (>60) Glucose Level 106 mg/dL (74-106) Calcium Level 8.8 mg/dL (8.6-10.2) Phosphorus Level 3.1 mg/dL (2.5-4.8) Magnesium Level 1.5 mg/dL (1.7-2.5) L Total Bilirubin 0.4 mg/dL (0.0-1.2) Aspartate Amino Transf (AST/SGOT) 13 U/L (5-40) Alanine Aminotransferase (ALT/SGPT) 12 U/L (3-33) Alkaline Phosphatase 110 U/L (35-104) H Total Protein 6.5 g/dL (6.6-8.7) L Albumin 3.2 g/dL (3.5-5.2) L Globulin 3.3 g/dL Albumin/Globulin Ratio 0.9 (1.0-2.7) L Height (Feet): 5 Height (Inches): 5.00 Weight (Pounds): 145 General Appearance: no apparent distress, alert, confused Cardiovascular: normal rate Respiratory/Chest: normal breath sounds, no respiratory distress Abdominal Exam: soft Coby Hernandez N.P. Nov 22, 2016 10:46 PHI WARD Nov 24, 2016 10:26
[2016-11-22] MEDS ORDERED: Artificial Tears 1.4% Op Soln BOTH EYES PRN (15:15)
--- NOTE | 2016-11-22 15:38 | Pulmonology Progress Note ---
Assessment/Plan Problems: (1) Acute encephalopathy (2) Sepsis (3) UTI (urinary tract infection) Assessment/Plan dc IV fluid continue abx check cultures neuro evaluation MRI of brain noted, negative haldol for agitation ok to dc Subjective ROS Limited/Unobtainable: Yes Interval Events: agitated Constitutional: Reports: no symptoms HEENT: Repors: no symptoms Allergies: Coded Allergies: No Known Allergies (Unverified , 11/20/16) Objective Last 24 Hour Vital Signs Date Time Temp Pulse Resp B/P Pulse Ox O2 Delivery O2 Flow Rate FiO2 11/22/16 12:35 184/94 11/22/16 12:00 98.9 95 18 184/84 98 Nasal Cannula 11/22/16 08:12 165/78 11/22/16 08:00 98.9 90 18 165/78 98 Nasal Cannula 11/22/16 04:00 98.4 84 18 183/89 100 Nasal Cannula 2.0 11/22/16 00:32 98.1 78 17 168/77 100 Nasal Cannula 2.0 11/22/16 00:19 168/77 11/21/16 21:43 Nasal Cannula 2.0 11/21/16 21:42 100 Nasal Cannula 2.0 11/21/16 20:06 98.8 75 18 137/67 100 Nasal Cannula 2.0 11/21/16 15:59 98.1 88 19 155/61 100 Nasal Cannula 2.0 Intake and Output 11/21/16 11/22/16 19:00 07:00 Intake Total 440 ml 350.0 ml Output Total 800 ml Balance -360 ml 350.0 ml Intake Oral 440 ml 240 ml IV Total 110.0 ml Output Urine Total 800 ml # Voids 1 2 General Appearance: WD/WN HEENT: normocephalic, atraumatic Respiratory/Chest: chest wall non-tender, lungs clear Breasts: no masses Cardiovascular: normal peripheral pulses Abdomen: normal bowel sounds, no organomegaly Genitourinary: normal external genitalia Microbiology Date/Time Source Procedure Growth Status 11/20/16 12:35 Blood Not Otherwise Specified Blood Culture - Preliminary NO GROWTH AFTER 24 HOURS Resulted 11/20/16 12:30 Blood Not Otherwise Specified Blood Culture - Preliminary NO GROWTH AFTER 24 HOURS Resulted Laboratory Tests 11/22/16 04:50: White Blood Count 15.4H, Red Blood Count 4.06L, Hemoglobin 11.7L, Hematocrit 37.3, Mean Corpuscular Volume 92, Mean Corpuscular Hemoglobin 28.8, Mean Corpuscular Hemoglobin Concent 31.4L, Red Cell Distribution Width 13.7, Platelet Count 349, Mean Platelet Volume 5.3L, Neutrophils (%) (Auto) 80.8H, Lymphocytes (%) (Auto) 11.0L, Monocytes (%) (Auto) 4.5, Eosinophils (%) (Auto) 3.3H, Basophils (%) (Auto) 0.4, Sodium Level 137, Potassium Level 3.4, Chloride Level 97L, Carbon Dioxide Level 27, Anion Gap 13, Blood Urea Nitrogen 18, Creatinine 0.7, Estimat Glomerular Filtration Rate , Glucose Level 106, Calcium Level 8.8, Phosphorus Level 3.1, Magnesium Level 1.5L, Total Bilirubin 0.4, Aspartate Amino Transf (AST/SGOT) 13, Alanine Aminotransferase (ALT/SGPT) 12, Alkaline Phosphatase 110H, Total Protein 6.5L, Albumin 3.2L, Globulin 3.3, Albumin/Globulin Ratio 0.9L Current Medications Medications (Trade) Dose Ordered Sig/Maggi Route PRN Reason Start Time Stop Time Status Last Admin Dose Admin Acetaminophen (Tylenol) 650 mg Q4H PRN ORAL T>100.5 11/20/16 15:30 12/20/16 15:29 Al Hydroxide/Mg Hydroxide (Mylanta II) 30 ml Q6H PRN ORAL dyspepsia 11/20/16 15:30 12/20/16 15:29 Artificial Tears (Akwa-Tears) 1 drop DAILYPRN BOTH EYES 11/22/16 15:15 12/22/16 15:14 UNV Clonidine HCl 0.1 mg 0.1 mg Q4H PRN ORAL For High Blood Pressure 11/21/16 09:40 12/21/16 09:39 11/22/16 12:35 Dextrose (Dextrose 50%) STAT PRN IV Hypoglycemia 11/20/16 15:30 12/20/16 15:29 Heparin Sodium (Porcine) (Heparin 5000 units/ml) 5,000 units EVERY 12 HOURS SUBQ 11/20/16 21:00 12/20/16 20:59 11/22/16 08:16 Insulin Aspart (NovoLOG) BEFORE MEALS AND HS SUBQ 11/20/16 21:00 12/20/16 20:59 11/22/16 11:57 Lisinopril (Zestril) 5 mg DAILY ORAL 11/21/16 09:00 12/21/16 08:59 11/22/16 08:12 Lorazepam (Ativan 2mg/ml 1ml) 0.5 mg Q4H PRN IV For Anxiety 11/20/16 15:30 11/27/16 15:29 11/21/16 13:57 Morphine Sulfate (Morphine Sulfate) 1 mg Q4H PRN IVP PAIN 4-10 11/20/16 15:30 11/27/16 15:29 Ondansetron HCl (Zofran) 4 mg Q6H PRN IVP Nausea & Vomiting 11/20/16 15:30 12/20/16 15:29 Piperacillin Sod/ Tazobactam Sod/ Dextrose (Zosyn/D5W) 110 ml @ 27.5 mls/hr EVERY 8 HOURS IVPB 11/21/16 14:00 11/26/16 13:59 11/22/16 14:34 Polyethylene Glycol (Miralax) 17 gm HSPRN PRN ORAL Constipation 11/20/16 21:00 12/20/16 20:59 Sodium Chloride 1,000 ml @ 75 mls/hr [id number] IV 11/22/16 13:30 12/22/16 13:29 11/22/16 14:34 Zolpidem Tartrate (Ambien) 5 mg HSPRN PRN ORAL Insomnia 11/20/16 21:00 12/20/16 20:59 WILMA ARECHIGA Nov 22, 2016 15:38
[2016-11-22] MEDS ORDERED: Haloperidol 5mg/ml Inj IVPB PRN (17:00)
[2016-11-23] MEDS ORDERED: UNOBMED (06:32)
[2016-11-23] MEDS ORDERED: ZESTRIL10 MG ORAL (07:38)
[2016-11-23] MEDS ORDERED: gliclazide (07:38)
[2016-11-23] MEDS ORDERED: Lisinopril 20mg tab ORAL SCH (09:00)
--- NOTE | 2016-11-23 14:05 | Discharge Summary ---
Discharge Summary Hospital Course Date of Admission Nov 20, 2016 at 14:29 Date of Discharge Nov 22, 2016 at 20:39 Admitting Diagnosis vomiting/leg pain HPI Amanda Ramirez is a 81 year old female who was admitted on Nov 20, 2016 at 14: 29 for Vomiting, Leg Pain Hospital Course [id number] Discharge Discharge Disposition Patient was discharged to Home (01) Discharge Diagnoses: Becky Jang NP Nov 23, 2016 14:05
--- NOTE | 2016-11-24 00:01 | Discharge Summary 2 SIG ---
DATE OF ADMISSION: 11/20/2016 DATE OF DISCHARGE: 11/22/2016 CONSULTANTS: Phi Ward M.D. BRIEF HOSPITAL COURSE: The patient is an 81-year-old female with history of dementia, diabetes mellitus, and hypertension who was brought in from home because of vomiting and hip pain and pain on urination. She was evaluated at [facility] on 11/12/[address] pulmonary angiogram done was negative. She presented to ED as she was more confused than usual. On evaluation, labs were remarkable for leukocytosis. WBC was 12.1. Chest x-ray showed no consolidation, effusion, or pneumothorax with old granulomatous disease. EKG was in normal sinus rhythm. Abdominal x-ray showed nonspecific bowel gas pattern. She was seen by distribution designer and was given symptomatic treatment and Zofran p.r.n. She was continued on IV hydration and was given H2 blockers. Brain MRI was negative for acute intracranial bleed, mass effect, or contrast enhancing lesion with chronic age-related changes and old lacunar infarcts. Blood culture did not isolate any growth. She underwent speech therapy, and the patient is at high risk for aspiration. Given that family wants her to have for quality of life, recommended downgrading diet to liquefied pureed, nectar-thick soup consistency with strict aspiration precaution and honey thick liquids. She was initially given Zosyn. However, blood culture was negative, antibiotic was discontinued, and the patient was discharged to home. FINAL DIAGNOSES: 1. Acute encephalopathy. 2. Sepsis. 3. Urinary tract infection. 4. Dehydration. 5. Anemia. 6. Dementia. DISPOSITION: The patient was discharged to home. Recommend to follow up with PCP in a week. Suggested strict aspiration precaution. DISCHARGE MEDICATIONS: Refer to medication list. Sandra Patel M.D. I have been assigned to dictate discharge summary on this account and I was not involved in the patient's management. Becky Jang N.P. DR: GAVIN JOB#: [id number] CC: JUAN
== END 2016-11-22 20:39 | disposition home or self-care (01) | DRG 871 ==
LOC: EDBD 12:00 → EMR 12:30 → 3E 14:29 → EDBEDREQ 17:56
DX: A41.9 Sepsis, unspecified organism (principal); G93.40 Encephalopathy, unspecified; N39.0 Urinary tract infection, site not specified; F03.90 Unspecified dementia, unspecified severity, without behavioral disturbance, psychotic disturbance, mood disturbance, and anxiety; D64.9 Anemia, unspecified; E11.9 Type 2 diabetes mellitus without complications; E86.0 Dehydration; R11.2 Nausea with vomiting, unspecified
CPT/HCPCS: 36415; 70553; 71010; 74000; 80053; 80061; 81003; 82962; 83605; 83690; 83735; 83880; 84100; 84484; 84550; 85025; 85610; 85730; 87040; 92610; 93005; 93970; 94760; A9585; J1815; J2405

== ENCOUNTER 2016-11-23 04:42 | Inpatient (IN) | payer SELFPAY ==
[~2016-11-23] VITALS: Ht 154.9 cm; Wt 49.9 kg
[~2016-11-23 04:42] MED LIST changes: +ASPIR 8181 MG ORAL; +ESCITALOPRAM OX10 MG ORAL; +EXELON1 EACH TD; +LANTUS SOL100 UNIT/1 SUBQ; +LIPITOR40 MG ORAL; +LISINOPRIL5 MG ORAL; -Morphine Sulfate 2mg/ml Inj IVP ONE
[2016-11-23 04:45] VITALS: BP 158/94
[2016-11-23 05:37] LABS: MEAN CORPUSCULAR HEMOGLOBIN 28.9 PG (27.0-31.0); MEAN CORPUSCULAR HGB CONC 31.9 G/DL (32.0-36.0); MEAN CORPUSCULAR VOLUME 91 FL (80-99); MEAN PLATELET VOLUME 6.3 FL (6.5-10.1); PLATELET COUNT 338 K/UL (150-450); RED BLOOD COUNT 4.39 M/UL (4.20-5.40); RED CELL DISTRIBUTION WIDTH 13.6 % (11.6-14.8); WHITE BLOOD COUNT 16.3 K/UL (4.8-10.8)
--- NOTE | 2016-11-23 05:49 | Emergency Room Report ---
History of Present Illness General Chief Complaint: Altered Level of Consciousness Source: Family Member, EMS Present Illness HPI The patient was admitted to [facility] 3 days ago. She was evaluated for right leg pain, vomiting and altered mental status. She was discharged yesterday. Work up with MRI (sinus disease and white matter changes) . The daughter called paramedics because she is still has been lethargic. She states that this is her condition since he was discharged from the hospital. She states that when she was in the hospital she was mainly sleeping. She has a history of dementia. She Was not given any new medications that she is aware of. No more vomiting. Moving bowels without difficulty. Still with genital rash, but daughter treating. History is limited as patient with dementia. Also deaf, but apparently knows sign language. Allergies: Coded Allergies: No Known Allergies (Unverified , 11/20/16) Patient History Limited by: medical condition Past Medical History: see triage record, old chart reviewed Past Surgical History: other - R hip Social History Narrative visit from [facility] with daughter Now: No Reviewed Nursing Documentation: PMH: Agreed, PSxH: Agreed Nursing Documentation-PMH Hx Hypertension: Yes Hx Diabetes: Yes Hx Cancer: No Hx Gastrointestinal Problems: No History Of Psychiatric Problem: Yes - Dementia Hx Neurological Problems: Yes Hx Alzheimer's Disease: Yes Review of Systems All Other Systems: limited Physical Exam Vital Signs Date Time Temp Pulse Resp B/P Pulse Ox O2 Delivery O2 Flow Rate FiO2 11/23/16 04:31 98.8 98 14 184/74 94 Room Air Sp02 EP Interpretation: reviewed, normal General Appearance: no apparent distress, Chronically Ill, Stupor Head: normocephalic, atraumatic Eyes: bilateral eye PERRL, bilateral eye normal inspection ENT: moist mucus membranes Neck: supple Respiratory: crackles, rales - > L Cardiovascular #1: regular rate, rhythm Cardiovascular #2: 2+ radial (R) Gastrointestinal: normal inspection, normal bowel sounds, non tender, no mass, non-distended Genitourinary: normal inspection Musculoskeletal: back normal, tender - all extremities to palpation. Limitation in movement of hips. Neurologic: other - not able to assess orientation, - responds to pain all extremities, not grasp with hands, upgoing toes Psychiatric: other - lethargic Reflexes: 1+ knee (R), 1+ knee (L) Skin: normal inspection, warm/dry Medical Decision Making Diagnostic Impression: Primary Impression: Altered level of consciousness Additional Impressions: Leukocytosis Qualified Codes: D72.829 - Elevated white blood cell count, unspecified Pneumonia Qualified Codes: J18.1 - Lobar pneumonia, unspecified organism ER Course Patient with lethargy after discharge from [facility]. New rales. Evaluation with labs, EKG, CXR. Need to exclude AMI, occult infection, electrolyte abnormalities, medication amongst others. Treatment with gentle IV hydration. Very complex patient. Non focal neuro with recent MRI. Also UA was clear. Had not tolerated pearl last time - will forgo replacement. EKG below. CXR with new RUL infiltrate. Labs with leukocytosis. Patient slightly more responsive with observation, but still lethargic. Needs observation. Admit Tele Dr. Patel. Laboratory Tests Test 11/23/16 05:12 11/23/16 20:58 11/23/16 21:20 11/24/16 06:30 White Blood Count 16.3 K/UL (4.8-10.8) H 14.7 K/UL (4.8-10.8) H Red Blood Count 4.39 M/UL (4.20-5.40) 4.10 M/UL (4.20-5.40) L Hemoglobin 12.7 G/DL (12.0-16.0) 12.0 G/DL (12.0-16.0) Hematocrit 39.7 % (37.0-47.0) 37.1 % (37.0-47.0) Mean Corpuscular Volume 91 FL (80-99) 90 FL (80-99) Mean Corpuscular Hemoglobin 28.9 PG (27.0-31.0) 29.1 PG (27.0-31.0) Mean Corpuscular Hemoglobin Concent 31.9 G/DL (32.0-36.0) L 32.2 G/DL (32.0-36.0) Red Cell Distribution Width 13.6 % (11.6-14.8) 13.3 % (11.6-14.8) Platelet Count 338 K/UL (150-450) 326 K/UL (150-450) Mean Platelet Volume 6.3 FL (6.5-10.1) L 5.7 FL (6.5-10.1) L Neutrophils (%) (Auto) % (45.0-75.0) % (45.0-75.0) Lymphocytes (%) (Auto) % (20.0-45.0) % (20.0-45.0) Monocytes (%) (Auto) % (1.0-10.0) % (1.0-10.0) Eosinophils (%) (Auto) % (0.0-3.0) % (0.0-3.0) Basophils (%) (Auto) % (0.0-2.0) % (0.0-2.0) Sodium Level 135 mEQ/L (135-145) 131 mEQ/L (135-145) L Potassium Level 3.2 mEQ/L (3.4-4.9) L 3.0 mEQ/L (3.4-4.9) L Chloride Level 95 mEQ/L (98-107) L 94 mEQ/L (98-107) L Carbon Dioxide Level 24 mEQ/L (20-30) 30 mEQ/L (20-30) Anion Gap 16 (5-15) H 7 (5-15) Blood Urea Nitrogen 18 mg/dL (7-23) 16 mg/dL (7-23) Creatinine 0.7 mg/dL (0.5-0.9) 0.6 mg/dL (0.5-0.9) Estimate Glomerular Filtration Rate mL/min (>60) mL/min (>60) Glucose Level 175 mg/dL (74-106) H 490 mg/dL (74-106) #H Lactic Acid Level 0.90 mmol/L (0.66-2.22) Calcium Level 8.7 mg/dL (8.6-10.2) 8.0 mg/dL (8.6-10.2) L Total Bilirubin 0.5 mg/dL (0.0-1.2) Aspartate Amino Transferase (AST) 14 U/L (5-40) Alanine Aminotransferase (ALT) 12 U/L (3-33) Alkaline Phosphatase 105 U/L (35-104) H Total Creatine Kinase 60 U/L (26-140) Troponin I < 0.30 ng/mL (<=0.30) Pro-B-Type Natriuretic Peptide 1693 pg/mL (0-450) H Total Protein 6.7 g/dL (6.6-8.7) Albumin 3.2 g/dL (3.5-5.2) L 3.3 g/dL (3.5-5.2) L Globulin 3.5 g/dL Albumin/Globulin Ratio 0.9 (1.0-2.7) L Thyroid Stimulating Hormone (TSH) 0.169 uIU/mL (0.300-4.500) Salicylates Level < 1 mg/dL (10-30) L < 1 mg/dL (10-30) L Acetaminophen Level < 10 ug/mL (10-30) L < 10 ug/mL (10-30) L Serum Alcohol < 10 mg/dL Venous Blood pH Pending Venous Blood Partial Pressure CO2 Pending Venous Blood Partial Pressure O2 Pending Venous Blood HCO3 Pending Venous Blood Total Carbon Dioxide Pending Venous Bld O2 Saturation (Measured) Pending Venous Blood Oxygen Saturation Pending Venous Blood Base Excess Pending Methemoglobin 0.3 Sodium (Blood Gas) mmol/l (135-148) Free Thyroxine 1.29 ng/dL (0.86-1.85) Total Triiodothyronine (TT3) 0.52 ng/mL (0.80-2.00) L Differential Total Cells Counted 100 Neutrophils % (Manual) 88 % (45-75) H Lymphocytes % (Manual) 5 % (20-45) L Monocytes % (Manual) 2 % (1-10) Eosinophils % (Manual) 1 % (0-3) Basophils % (Manual) 0 % (0-2) Band Neutrophils 4 % (0-8) Platelet Estimate Adequate Platelet Morphology Normal Hypochromasia 1+ Anisocytosis Microcytosis 1+ Stomatocytes 1+ Phosphorus Level 1.6 mg/dL (2.5-4.8) L EKG Diagnostic Results Rate: normal Rhythm: NSR ST Segments: no acute changes Rhythm Strip Diag. Results EP Interpretation: yes Rhythm: NSR, no PVC's, no ectopy Chest X-Ray Diagnostic Results Chest X-Ray Diagnostic Results : Chest X-Ray Ordered: Yes # of Views/Limited/Complete: 1 View Indication: Other Interpretation: no effusion, no pneumothorax, other - RUL infiltrate Impression: Other Interpreting ER Provider: aby Dennis MD Status: improved Disposition: ADMITTED INPATIENT Condition: Serious Referrals: NOT CHOSEN INDU/,REFERRING (PCP) Kory Dennis M.D. Nov 23, 2016 05:49
[2016-11-23 06:20] LABS: TROPONIN I < 0.30 ng/mL (<=0.30)
[2016-11-23 06:27] LABS: ACETAMINOPHEN < 10 ug/mL (10-30); ALANINE AMINOTRANSFERASE 12 U/L (3-33); ALBUMIN/GLOBULIN RATIO 0.9 (1.0-2.7); ALCOHOL < 10 mg/dL; ANION GAP 16 (5-15); ASPARTATE AMINO TRANSFERASE 14 U/L (5-40); CALCIUM 8.7 mg/dL (8.6-10.2); CARBON DIOXIDE 24 mEQ/L (20-30); CHLORIDE 95 mEQ/L (98-107); CREATININE 0.7 mg/dL (0.5-0.9); HEMOLYSIS 44; POTASSIUM 3.2 mEQ/L (3.4-4.9); SODIUM 135 mEQ/L (135-145); TOTAL PROTEIN 6.7 g/dL (6.6-8.7)
[2016-11-23] MEDS ORDERED: cefTRIAXone 1 GM in NS 55 ML IVPB ONE (06:30)
[2016-11-23 06:31] LABS: THYROID STIMULATING HORMONE 0.169 uIU/mL (0.300-4.500)
[2016-11-23] MEDS ORDERED: UNOBMED (06:32)
[2016-11-23] MEDS ORDERED: ZESTRIL10 MG ORAL (07:38)
[2016-11-23] MEDS ORDERED: gliclazide (07:38)
[2016-11-23 08:14] VITALS: BP 119/44
--- NOTE | 2016-11-23 08:34 | Diagnostic Imaging Report ---
Indications: S. Pain Technique: Portable AP chest Findings: Comparison: 11/20/16 Suboptimal inspiration, patient rotation limit evaluation. Interstitial markings remain increased bilaterally. There is suggestion that this is focally increased in the right upper lobe. Heart size, pulmonary vasculature remain within normal limits. No obvious pleural abnormality demonstrated. Left lung apex, left hilar nodular calcifications again noted. IMPRESSION: Bilateral interstitial disease, nonspecific, unchanged Apparent focal increase in interstitial disease and right upper lobe may be technical in nature. Developing focal pneumonia or asymmetric pulmonary edema not excludable. No other change
[2016-11-23 08:53] VITALS: BP 130/53
[2016-11-23 09:00] VITALS: BP 162/82
[2016-11-23] MEDS ORDERED: Mylanta II UD 30ml ORAL PRN (09:00)
[2016-11-23] MEDS ORDERED: Miralax 17gm pkt ORAL PRN (09:00)
[2016-11-23] MEDS ORDERED: Nitroglycerin Subl 0.4mg tab (Bottle Of 25) SL PRN (09:00)
[2016-11-23] MEDS ORDERED: Promethazine/Codeine 5ml UD ORAL PRN (09:00)
[2016-11-23] MEDS ORDERED: Vancomycin 1gm in D5W 275ml IVPB ONE (10:30)
[2016-11-23] MEDS: Cefepime HCl 1 GM in D5W 55 ML IV SCH (11:08)
[2016-11-23] MEDS: D5 1/2NS 1,000 ML IV SCH (11:44)
[2016-11-23] MEDS: Heparin 5000 units/ml inj SUBQ SCH ×2 (11:49→21:05)
[2016-11-23 12:00] VITALS: BP 149/75
[2016-11-23 16:00] VITALS: BP 172/96
--- NOTE | 2016-11-23 16:02 | History and Physical ---
History of Present Illness General Date patient seen: Nov 23, 2016 Reason for Hospitalization: Altered Level of Consciousness Present Illness HPI 81 year old female with hx of dementia, DM, HTN, just left [place] with then intention of leaving the country, brought in with CC of [facility]. She had increased WBC and infiltrate on the CXR. She is admitted for further treatment. Allergies: Coded Allergies: No Known Allergies (Unverified , 11/20/16) Medication History Scheduled Aspirin* (Aspir 81*), 81 MG ORAL DAILY, (Reported) Atorvastatin Calcium* (Lipitor*), Unknown Dose ORAL BEDTIME, (Reported) Escitalopram Oxalate (Escitalopram Oxalate*), 10 MG ORAL DAILY, (Reported) Insulin Glargine (Lantus), Unknown Dose SUBQ BEDTIME, (Reported) Lisinopril (Lisinopril*), Unknown Dose ORAL DAILY, (Reported) Lisinopril* (Zestril*), 10 MG ORAL DAILY, (Reported) Miscellaneous Medications Rivastigmine (Exelon), Unknown Dose TD, (Reported) Unable to Obtain Medications (Unable To Obtain Meds), (Reported) [gliclazide], 60 MG, (Reported) Patient History Healthcare decision maker Daughter Resuscitation status Full Code Advanced Directive on File Past Medical/Surgical History Past Medical/Surgical History: (1) Diabetes mellitus (2) Hypertension (3) Anemia Review of Systems All Other Systems: negative except mentioned in HPI Physical Exam General Appearance: WD/WN, no apparent distress Lines, tubes and drains: peripheral, central line HEENT: normocephalic, anicteric Neck: non-tender, normal alignment Respiratory/Chest: chest wall non-tender, lungs clear Breasts: no masses Cardiovascular/Chest: normal rate Abdomen: normal bowel sounds, non tender Genitourinary/Rectal: normal genital exam Last 24 Hour Vital Signs Date Time Temp Pulse Resp B/P Pulse Ox O2 Delivery O2 Flow Rate FiO2 11/23/16 12:00 97.5 86 20 149/75 95 Room Air 11/23/16 09:00 98.1 85 20 162/82 96 Room Air 11/23/16 08:53 99.0 87 23 130/53 98 Room Air 11/23/16 08:53 99.0 87 17 119/44 97 Room Air 11/23/16 08:14 99.0 87 17 119/44 97 Room Air 11/23/16 04:45 99.0 94 14 158/94 94 Room Air 11/23/16 04:31 98.8 98 14 184/74 94 Room Air Intake and Output 11/22/16 11/23/16 19:00 07:00 Intake Total 0 ml Balance 0 ml Intake Oral 0 ml Laboratory Tests Test 11/23/16 05:12 White Blood Count 16.3 K/UL (4.8-10.8) H Red Blood Count 4.39 M/UL (4.20-5.40) Hemoglobin 12.7 G/DL (12.0-16.0) Hematocrit 39.7 % (37.0-47.0) Mean Corpuscular Volume 91 FL (80-99) Mean Corpuscular Hemoglobin 28.9 PG (27.0-31.0) Mean Corpuscular Hemoglobin Concent 31.9 G/DL (32.0-36.0) L Red Cell Distribution Width 13.6 % (11.6-14.8) Platelet Count 338 K/UL (150-450) Mean Platelet Volume 6.3 FL (6.5-10.1) L Neutrophils (%) (Auto) % (45.0-75.0) Lymphocytes (%) (Auto) % (20.0-45.0) Monocytes (%) (Auto) % (1.0-10.0) Eosinophils (%) (Auto) % (0.0-3.0) Basophils (%) (Auto) % (0.0-2.0) Sodium Level 135 mEQ/L (135-145) Potassium Level 3.2 mEQ/L (3.4-4.9) L Chloride Level 95 mEQ/L (98-107) L Carbon Dioxide Level 24 mEQ/L (20-30) Anion Gap 16 (5-15) H Blood Urea Nitrogen 18 mg/dL (7-23) Creatinine 0.7 mg/dL (0.5-0.9) Estimat Glomerular Filtration Rate mL/min (>60) Glucose Level 175 mg/dL (74-106) H Lactic Acid Level 0.90 mmol/L (0.66-2.22) Calcium Level 8.7 mg/dL (8.6-10.2) Total Bilirubin 0.5 mg/dL (0.0-1.2) Aspartate Amino Transf (AST/SGOT) 14 U/L (5-40) Alanine Aminotransferase (ALT/SGPT) 12 U/L (3-33) Alkaline Phosphatase 105 U/L (35-104) H Total Creatine Kinase 60 U/L (26-140) Troponin I < 0.30 ng/mL (<=0.30) Pro-B-Type Natriuretic Peptide 1693 pg/mL (0-450) H Total Protein 6.7 g/dL (6.6-8.7) Albumin 3.2 g/dL (3.5-5.2) L Globulin 3.5 g/dL Albumin/Globulin Ratio 0.9 (1.0-2.7) L Thyroid Stimulating Hormone (TSH) 0.169 uIU/mL (0.300-4.500) Salicylates Level < 1 mg/dL (10-30) L Acetaminophen Level < 10 ug/mL (10-30) L Serum Alcohol < 10 mg/dL Height (Feet): 5 Height (Inches): 1.00 Weight (Pounds): 110 Medications Current Medications Medications (Trade) Dose Ordered Sig/Maggi Route PRN Reason Start Time Stop Time Status Last Admin Dose Admin Acetaminophen (Tylenol) 650 mg Q4H PRN ORAL fever>100.5 11/23/16 09:00 12/23/16 08:59 Al Hydroxide/Mg Hydroxide (Mylanta II) 30 ml Q6H PRN ORAL dyspepsia 11/23/16 09:00 12/23/16 08:59 Albuterol/ Ipratropium 3 ml 3 ml Q4H PRN HHN Shortness of Breath 11/23/16 09:00 11/28/16 08:59 Cefepime HCl/ Dextrose (Maxipime/D5W) 55 ml @ 110 mls/hr DAILY IV 11/23/16 10:00 11/30/16 09:59 11/23/16 11:08 Dextrose/Sodium Chloride (D5 0.45% NS) 1,000 ml @ 50 mls/hr Q20H IV 11/23/16 11:30 12/23/16 11:29 11/23/16 11:44 Heparin Sodium (Porcine) (Heparin 5000 units/ml) 5,000 units EVERY 12 HOURS SUBQ 11/23/16 09:00 12/23/16 08:59 11/23/16 11:49 Nitroglycerin (Ntg) 0.4 mg Q5M PRN SL Prn Chest Pain 11/23/16 09:00 12/23/16 08:59 Olanzapine (ZyPREXA) 2.5 mg DAILY ORAL 11/24/16 09:00 12/24/16 08:59 Ondansetron HCl (Zofran) 4 mg Q6H PRN IVP Nausea & Vomiting 11/23/16 09:00 12/23/16 08:59 Polyethylene Glycol (Miralax) 17 gm DAILYPRN PRN ORAL Constipation 11/23/16 09:00 12/23/16 08:59 Promethazine HCl/ Codeine (Phenergan with Codeine) 5 ml Q4H PRN ORAL For Cough 11/23/16 09:00 12/23/16 08:59 Temazepam (Restoril) 15 mg HSPRN PRN ORAL Insomnia 11/23/16 21:00 11/30/16 20:59 Vancomycin HCl 750 mg/Dextrose 275 ml @ 183.708 mls/hr Q24H IVPB 11/24/16 10:00 11/29/16 09:59 Vancomycin HCl 1 ea 1 ea DAILY PRN MISC Per rx protocol 11/23/16 09:00 12/23/16 08:59 Assessment/Plan Problem List: (1) Pneumonia ICD Codes: J18.9 - Pneumonia, unspecified organism SNOMED: 121295371 (2) UTI (urinary tract infection) ICD Codes: N39.0 - Urinary tract infection, site not specified SNOMED: 74650383 (3) Hypertension ICD Codes: I10 - Essential (primary) hypertension SNOMED: 57946740 (4) Diabetes mellitus ICD Codes: E11.9 - Type 2 diabetes mellitus without complications SNOMED: 97551947 Assessment/Plan NPO Iv fluids marquez culture pscy evaluation WILMA ARECHIGA Nov 23, 2016 16:02
--- NOTE | 2016-11-23 17:17 | Consultation ---
History of Present Illness General Chief Complaint: Altered Level of Consciousness Present Illness HPI 81 year old female with hx of dementia, DM, HTN, just left [facility] with then intention of leaving the country, brought in with [facility] [place]. the pt was brought back by daughter. the pt is agitated and unable to swallow the pt was confused and disoriented yelling and agitated Allergies: Coded Allergies: No Known Allergies (Unverified , 11/20/16) Medication History Scheduled Aspirin* (Aspir 81*), 81 MG ORAL DAILY, (Reported) Atorvastatin Calcium* (Lipitor*), Unknown Dose ORAL BEDTIME, (Reported) Escitalopram Oxalate (Escitalopram Oxalate*), 10 MG ORAL DAILY, (Reported) Insulin Glargine (Lantus), Unknown Dose SUBQ BEDTIME, (Reported) Lisinopril (Lisinopril*), Unknown Dose ORAL DAILY, (Reported) Lisinopril* (Zestril*), 10 MG ORAL DAILY, (Reported) Miscellaneous Medications Rivastigmine (Exelon), Unknown Dose TD, (Reported) Unable to Obtain Medications (Unable To Obtain Meds), (Reported) [gliclazide], 60 MG, (Reported) Patient History Limited by: medical condition History Provided By: Medical Record, PMD Healthcare decision maker Daughter Resuscitation status Full Code Advanced Directive on File Past Medical/Surgical History Past Medical/Surgical History: (1) Weakness (2) Sepsis (3) Acute encephalopathy (4) Dehydration (5) Nausea (6) Leukocytosis (7) Altered level of consciousness (8) Diabetes mellitus (9) Anemia (10) Hypertension (11) UTI (urinary tract infection) (12) Pneumonia Review of Systems Psychiatric: Reports: anxiety, hallucinations Physical Exam General Appearance: lethargic, confused, mild distress, agitated, thin Neurologic: disoriented Last 24 Hour Vital Signs Date Time Temp Pulse Resp B/P Pulse Ox O2 Delivery O2 Flow Rate FiO2 11/23/16 16:00 98.2 96 20 172/96 93 Room Air 11/23/16 12:00 97.5 86 20 149/75 95 Room Air 11/23/16 09:00 98.1 85 20 162/82 96 Room Air 11/23/16 08:53 99.0 87 23 130/53 98 Room Air 11/23/16 08:53 99.0 87 17 119/44 97 Room Air 11/23/16 08:14 99.0 87 17 119/44 97 Room Air 11/23/16 04:45 99.0 94 14 158/94 94 Room Air 11/23/16 04:31 98.8 98 14 184/74 94 Room Air Intake and Output 11/22/16 11/23/16 19:00 07:00 Intake Total 0 ml Balance 0 ml Intake Oral 0 ml Laboratory Tests Test 11/23/16 05:12 White Blood Count 16.3 K/UL (4.8-10.8) H Red Blood Count 4.39 M/UL (4.20-5.40) Hemoglobin 12.7 G/DL (12.0-16.0) Hematocrit 39.7 % (37.0-47.0) Mean Corpuscular Volume 91 FL (80-99) Mean Corpuscular Hemoglobin 28.9 PG (27.0-31.0) Mean Corpuscular Hemoglobin Concent 31.9 G/DL (32.0-36.0) L Red Cell Distribution Width 13.6 % (11.6-14.8) Platelet Count 338 K/UL (150-450) Mean Platelet Volume 6.3 FL (6.5-10.1) L Neutrophils (%) (Auto) % (45.0-75.0) Lymphocytes (%) (Auto) % (20.0-45.0) Monocytes (%) (Auto) % (1.0-10.0) Eosinophils (%) (Auto) % (0.0-3.0) Basophils (%) (Auto) % (0.0-2.0) Sodium Level 135 mEQ/L (135-145) Potassium Level 3.2 mEQ/L (3.4-4.9) L Chloride Level 95 mEQ/L (98-107) L Carbon Dioxide Level 24 mEQ/L (20-30) Anion Gap 16 (5-15) H Blood Urea Nitrogen 18 mg/dL (7-23) Creatinine 0.7 mg/dL (0.5-0.9) Estimat Glomerular Filtration Rate mL/min (>60) Glucose Level 175 mg/dL (74-106) H Lactic Acid Level 0.90 mmol/L (0.66-2.22) Calcium Level 8.7 mg/dL (8.6-10.2) Total Bilirubin 0.5 mg/dL (0.0-1.2) Aspartate Amino Transf (AST/SGOT) 14 U/L (5-40) Alanine Aminotransferase (ALT/SGPT) 12 U/L (3-33) Alkaline Phosphatase 105 U/L (35-104) H Total Creatine Kinase 60 U/L (26-140) Troponin I < 0.30 ng/mL (<=0.30) Pro-B-Type Natriuretic Peptide 1693 pg/mL (0-450) H Total Protein 6.7 g/dL (6.6-8.7) Albumin 3.2 g/dL (3.5-5.2) L Globulin 3.5 g/dL Albumin/Globulin Ratio 0.9 (1.0-2.7) L Thyroid Stimulating Hormone (TSH) 0.169 uIU/mL (0.300-4.500) Salicylates Level < 1 mg/dL (10-30) L Acetaminophen Level < 10 ug/mL (10-30) L Serum Alcohol < 10 mg/dL Height (Feet): 5 Height (Inches): 1.00 Weight (Pounds): 110 Medications Current Medications Medications (Trade) Dose Ordered Sig/Maggi Route PRN Reason Start Time Stop Time Status Last Admin Dose Admin Acetaminophen (Tylenol) 650 mg Q4H PRN ORAL fever>100.5 11/23/16 09:00 12/23/16 08:59 Al Hydroxide/Mg Hydroxide (Mylanta II) 30 ml Q6H PRN ORAL dyspepsia 11/23/16 09:00 12/23/16 08:59 Albuterol/ Ipratropium 3 ml 3 ml Q4H PRN HHN Shortness of Breath 11/23/16 09:00 11/28/16 08:59 Cefepime HCl/ Dextrose (Maxipime/D5W) 55 ml @ 110 mls/hr DAILY IV 11/23/16 10:00 11/30/16 09:59 11/23/16 11:08 Dextrose/Sodium Chloride (D5 0.45% NS) 1,000 ml @ 50 mls/hr Q20H IV 11/23/16 11:30 12/23/16 11:29 11/23/16 11:44 Heparin Sodium (Porcine) (Heparin 5000 units/ml) 5,000 units EVERY 12 HOURS SUBQ 11/23/16 09:00 12/23/16 08:59 11/23/16 11:49 Nitroglycerin (Ntg) 0.4 mg Q5M PRN SL Prn Chest Pain 11/23/16 09:00 12/23/16 08:59 Olanzapine (ZyPREXA Zydis) 2.5 mg QHS SL 11/23/16 21:00 12/23/16 20:59 Ondansetron HCl (Zofran) 4 mg Q6H PRN IVP Nausea & Vomiting 11/23/16 09:00 12/23/16 08:59 Polyethylene Glycol (Miralax) 17 gm DAILYPRN PRN ORAL Constipation 11/23/16 09:00 12/23/16 08:59 Promethazine HCl/ Codeine (Phenergan with Codeine) 5 ml Q4H PRN ORAL For Cough 11/23/16 09:00 12/23/16 08:59 Temazepam (Restoril) 15 mg HSPRN PRN ORAL Insomnia 11/23/16 21:00 11/30/16 20:59 Vancomycin HCl 750 mg/Dextrose 275 ml @ 183.708 mls/hr Q24H IVPB 11/24/16 10:00 11/29/16 09:59 Vancomycin HCl 1 ea 1 ea DAILY PRN MISC Per rx protocol 11/23/16 09:00 12/23/16 08:59 Assessment/Plan Status: stable Assessment/Plan delirium due to [facility] dementia -zyprexa zydis 2.5mg qhs Jorge Whitaker M.D. Nov 23, 2016 17:17
[2016-11-23] MEDS: ZyPREXA Zydis 5mg tab SL SCH (20:57)
[2016-11-23 22:36] LABS: ACETAMINOPHEN < 10 ug/mL (10-30)
--- NOTE | 2016-11-23 23:02 | Consultation ---
DATE OF CONSULTATION: 11/23/2016 INFECTIOUS DISEASE CONSULTATION CONSULTING PHYSICIAN: Ifeanyi Cooper M.D. covering for Dr. Lieberman. ATTENDING PHYSICIAN: Sandra Patel M.D. REASON FOR CONSULTATION: Altered mental status and leukocytosis. HISTORY OF PRESENT ILLNESS: 81-year-old female with a history of dementia, diabetes, hypertension, and a recent hospitalization for three days at [facility] for altered mental status, now readmitted for chief complaint of altered mental status along with an increased white blood cell count and interstitial infiltrate on chest x-ray. Recently admitted to [facility] from 11/20/2016 until 11/22/2016 with a chief complaint of altered mental status with emesis and during that admission she was on empiric intravenous Zosyn for two days, but no infectious etiologies for her altered mental status was identified. It is important to note that she had a hospitalization on 11/12/2016 at [facility]. During which time, she was reported to have a CT pulmonary angiogram done, which was negative for pulmonary embolism. She had a MRI brain with and without contrast on 11/21/2016, which was negative for an acute intracranial bleed, mass effect, infarct, contrast-enhancing lesion, or leptomeningeal enhancement. The MRI did show a probable old lacunar infarcts, in particular a small punctate focus in the right basal ganglia, she had chronic ethmoid and sphenoid sinus disease. At the time of admission on this occasion, the patient was confused, unable to swallow, and was disoriented, yelling and agitated. She had a T-max of 99 degrees Fahrenheit and initial vital signs, otherwise remarkable for hypertension, was saturating above 93% on room air and was not tachycardic. Her initial laboratory evaluation was notable for a white count of 16.3, hemoglobin of 12.7 grams/deciliter, which is consistent with her baseline and platelet count of 338,000. A chemistry panel was noted for sodium 135, hypokalemia with a potassium of 3.2, normal serum bicarbonate, but an elevated anion gap of 16, BUN of 18, and creatinine 0.7 with an elevated serum glucose of 175. She had normal serum lactic acid of 0.9. Liver function tests were generally unremarkable with a mildly elevated alkaline phosphatase at 105 and she had a normal CK and one negative troponin. Her BNP was elevated at 1693 picograms/milliliter and she has a slightly low albumin at 3.2. She is also noted to have a depressed serum TSH at 0.169 units per milliliter. She had toxicology screen notable for absence of salicylates, acetaminophen, or serum alcohol and a urine has been sent, but has not yet been resulted and she also had a sputum culture that has been sent as well. No blood cultures have been obtained. PAST MEDICAL HISTORY: Dementia, diabetes, hypertension, and mild chronic anemia. MEDICATIONS: Her home medications include baby aspirin, Atorvastatin 40 mg daily, escitalopram, Lantus, lisinopril, rivastigmine and glipizide. Inpatient abx: IV cefepime and Vancomycin (11/23/16-- ALLERGIES: She has no known drug allergies. PERSONAL SOCIAL HISTORY: Lives at home with her family. No significant alcohol use recently. not bengali speaking. FAMILY HISTORY: Noncontributory. REVIEW OF SYSTEMS: Otherwise, not able to be obtained from the patient. PHYSICAL EXAMINATION: GENERAL: She was lethargic, but does open eyes briefly to voice, otherwise, sleeping peacefully. VITAL SIGNS: Current vital signs, temperature 98.2 degrees Fahrenheit, pulse 96, respiratory rate 20, blood pressure 172/96, and pulse oximetry 93% on room air. HEENT: She does not have an enlarged thyroid. Oral mucosa is dry, but there is no pharyngeal erythema or exudate. She has no cervical lymphadenopathy. NECK: Supple. CARDIOVASCULAR: She has a regular rate and rhythm. She has a 2/6 systolic ejection murmur, heard best over the left upper sternal border and her PMI is not displaced. LUNGS: Clear to auscultation bilaterally, but with poor inspiratory effort. ABDOMEN: Soft. No rebound. She did appear to have pain in the right upper quadrant that was not reproducible exam finding. GENITOURINARY: No Harrison in place. No external genitourinary lesions. SKIN: There is no skin rash. There is no petechia. There is no peripheral cyanosis or mottling in extremities. EXTREMITIES: She has 1+ bilateral lower extremity pitting edema. Peripheral pulses are intact throughout. NEUROLOGIC: Moves all four extremities spontaneously. LABORATORY AND DIAGNOSTIC DATA: Laboratory data as described above. Imaging, she had a chest x-ray that shows poor inspiratory effort and there perhaps is bilateral interstitial disease versus early pulmonary edema. ASSESSMENT: This is an 81-year-old female with a history of dementia, now admitted with leukocytosis, altered level of consciousness, possible early pneumonia versus congestive heart failure exacerbation with a recent hospitalization for similar, with no infectious etiology identified. 1. Altered mental status. 2. Leukocytosis, most concerned for an acute pulmonary infection, however, initial chest x-ray is equivocal and should be followed up with a repeat chest x-ray in the morning. Exam is not particularly consistent with meningitis with supple neck and a negative Kernig sign and she has no apparent focal neurologic deficits on a recent MRI of the brain, which was remarkable only for chronic microvascular ischemic changes. We will rule out for urinary tract infection and an occult bacteremia. 3. Anion gap. So far, toxicology screen and ingestion panel is unremarkable, but we will obtain a venous blood gases now to assess venous oxygen saturations as a marker for early sepsis. 4. Elevated brain natriuretic peptide. 5. Low thyroid-stimulating hormone concerning for hyperthyroidism, perhaps acute phase of thyroiditis. RECOMMENDATIONS: 1. Continue empiric intravenous cefepime and vancomycin currently on full day one of therapy. 2. Two sets of blood cultures now. 3. Venous blood gas. 4. Follow up on urinalysis and urine culture if indicated. 5. Obtain serum free T4 and total T3 to assess for hyperthyroidism as a contributing factor to her altered sensorium. 6. Noncontrast head CT, although expect with a recent MRI that it will demonstrate her chronic microvascular ischemic changes and old lacunar infarcts. 7. Followup sputum culture. 8. Followup CBC with a repeat in the morning. 9. Continue to assess for other noninfectious etiologies for her acute on chronic altered mental status. Thank you for this consultation. Ifeanyi Cooper MD DR: BALTAZAR JOB#: [id number] CC: JUAN
[2016-11-24] VITALS: BP 184/94
--- NOTE | 2016-11-24 00:48 | Cardiology Report ---
APPROVED REPORT EKG Measurement Heart [id number] Normal sinus rhythm Anteroseptal infarct, age undetermined Abnormal ECG
[2016-11-24 03:58] VITALS: BP 128/42
[2016-11-24 07:28] LABS: MEAN CORPUSCULAR HEMOGLOBIN 29.1 PG (27.0-31.0); MEAN CORPUSCULAR HGB CONC 32.2 G/DL (32.0-36.0); MEAN CORPUSCULAR VOLUME 90 FL (80-99); MEAN PLATELET VOLUME 5.7 FL (6.5-10.1); PLATELET COUNT 326 K/UL (150-450); RED CELL DISTRIBUTION WIDTH 13.3 % (11.6-14.8); WHITE BLOOD COUNT 14.7 K/UL (4.8-10.8)
[2016-11-24 07:29] LABS: ANION GAP 7 (5-15); CARBON DIOXIDE 30 mEQ/L (20-30); CHLORIDE 94 mEQ/L (98-107); CREATININE 0.6 mg/dL (0.5-0.9); HEMOLYSIS 1; PHOSPHORUS 1.6 mg/dL (2.5-4.8); SODIUM 131 mEQ/L (135-145)
[2016-11-24] MEDS: D5 1/2NS 1,000 ML IV SCH ×2 (07:30→17:43)
[2016-11-24 08:00] VITALS: BP 171/72
--- NOTE | 2016-11-24 08:31 | Pulmonology Progress Note ---
Assessment/Plan Assessment/Plan ASSESSMENT acute encephalopathy ( 2 to infectious process) on chronic dementia PNA probable UTI HTN DM delirium 2 to [facility] [place] e/lyte imbalance: hypokalemia, hypophosphatemia low TSH PLAN OF CARE MS floor IVF abx ID follows CT head today tox screen negative more awake, but poorly communicative BP BS CXR with developing PNA fup CXR with slightly improved interstitial edema, over one day Chronic interstitial disease and evidence of old granulomatous disease, unchanged O2 HHN prn antitussive prn DVT prophylaxis diet as per ST recommendations - for quality of life with strict aspiration/ reflux precautions and 1 to 1 feeding replace K and P , check lytes in am low TSH and low T3 via office machines sales representative Annabella found that family wants to take the patient on Sunday since [place] are leaving the country family expressed desire to discharge patient with note that patient was unstable and need nurse during the traveling case discussed and evaluated by supervising physician Subjective Allergies: Coded Allergies: No Known Allergies (Unverified , 11/20/16) Subjective leukocytosis trending down,afebrile no signs of respiratory distress awake, poorly responsive K-3.0; P-1.6 daughter at the bedside Objective Last 24 Hour Vital Signs Date Time Temp Pulse Resp B/P Pulse Ox O2 Delivery O2 Flow Rate FiO2 11/24/16 08:21 171/82 11/24/16 08:00 99.1 77 18 171/72 96 Room Air 11/24/16 03:58 98.1 88 20 128/42 93 Room Air 11/24/16 01:22 184/94 11/24/16 00:00 99 20 184/94 95 Room Air 11/23/16 20:00 97.7 92 20 94 Room Air 11/23/16 16:00 98.2 96 20 172/96 93 Room Air 11/23/16 12:00 97.5 86 20 149/75 95 Room Air 11/23/16 09:00 98.1 85 20 162/82 96 Room Air 11/23/16 08:53 99.0 87 23 130/53 98 Room Air 11/23/16 08:53 99.0 87 17 119/44 97 Room Air Intake and Output 11/23/16 11/24/16 19:00 07:00 Intake Total 350 ml 550 ml Balance 350 ml 550 ml IV Total 350 ml 550 ml # Voids 2 Objective GENERAL: NAD, chronically looking elderly female, bedridden HEENT: Dry oral mucosa but no erythema or exudate. NECK: Supple.Trachea midline, NO JVD CARDIOVASCULAR: S1S2, regular, 2/6 systolic ejection murmur at LSB LUNGS: CTAB with moderate air exchange ABDOMEN: Soft, NT/ND, hypoactive bowel sounds SKIN: No rash. EXTREMITIES: 1+ BLE pitting edema. Peripheral pulses intact bilaterally and equal NEUROLOGIC: Moves all four extremities spontaneously. withdraws to tactile stimuli , speaks 1 or 2 words, Laboratory Tests 11/23/16 20:58: Venous Blood pH [Pending], Venous Blood Partial Pressure CO2 [Pending], Venous Blood Partial Pressure O2 [Pending], Venous Blood HCO3 [Pending], Venous Blood Total Carbon Dioxide [Pending], Venous Bld O2 Saturation (Measured) [Pending], Venous Blood Oxygen Saturation [Pending], Venous Blood Base Excess [Pending], Methemoglobin 0.3, Sodium (Blood Gas) 11/23/16 21:20: Free Thyroxine 1.29, Total Triiodothyronine 0.52L, Salicylates Level < 1L, Acetaminophen Level < 10L 11/24/16 06:30: White Blood Count 14.7H, Red Blood Count 4.10L, Hemoglobin 12.0, Hematocrit 37.1 , Mean Corpuscular Volume 90, Mean Corpuscular Hemoglobin 29.1, Mean Corpuscular Hemoglobin Concent 32.2, Red Cell Distribution Width 13.3, Platelet Count 326, Mean Platelet Volume 5.7L, Neutrophils (%) (Auto) , Lymphocytes (%) ( Auto) , Monocytes (%) (Auto) , Eosinophils (%) (Auto) , Basophils (%) (Auto) , Neutrophils % (Manual) [Pending], Lymphocytes % (Manual) [Pending], Platelet Estimate [Pending], Platelet Morphology [Pending], Sodium Level 131L, Potassium Level 3.0L, Chloride Level 94L, Carbon Dioxide Level 30, Anion Gap 7, Blood Urea Nitrogen 16, Creatinine 0.6, Estimat Glomerular Filtration Rate , Glucose Level 490#H, Calcium Level 8.0L, Phosphorus Level 1.6L, Albumin 3.3L Current Medications Medications (Trade) Dose Ordered Sig/Maggi Route PRN Reason Start Time Stop Time Status Last Admin Dose Admin Acetaminophen (Tylenol) 650 mg Q4H PRN ORAL fever>100.5 11/23/16 09:00 12/23/16 08:59 Al Hydroxide/Mg Hydroxide (Mylanta II) 30 ml Q6H PRN ORAL dyspepsia 11/23/16 09:00 12/23/16 08:59 Albuterol/ Ipratropium 3 ml 3 ml Q4H PRN HHN Shortness of Breath 11/23/16 09:00 11/28/16 08:59 Cefepime HCl/ Dextrose (Maxipime/D5W) 55 ml @ 110 mls/hr DAILY IV 11/23/16 10:00 11/30/16 09:59 11/23/16 11:08 Clonidine HCl (Catapres) 0.1 mg Q4H PRN SL For High Blood Pressure 11/23/16 22:45 12/23/16 22:44 11/24/16 08:21 Dextrose/Sodium Chloride (D5 0.45% NS) 1,000 ml @ 50 mls/hr Q20H IV 11/23/16 11:30 12/23/16 11:29 11/23/16 11:44 Heparin Sodium (Porcine) (Heparin 5000 units/ml) 5,000 units EVERY 12 HOURS SUBQ 11/23/16 09:00 12/23/16 08:59 11/23/16 21:05 Nitroglycerin (Ntg) 0.4 mg Q5M PRN SL Prn Chest Pain 11/23/16 09:00 12/23/16 08:59 Olanzapine (ZyPREXA Zydis) 2.5 mg QHS SL 11/23/16 21:00 12/23/16 20:59 11/23/16 20:57 Ondansetron HCl (Zofran) 4 mg Q6H PRN IVP Nausea & Vomiting 11/23/16 09:00 12/23/16 08:59 Polyethylene Glycol (Miralax) 17 gm DAILYPRN PRN ORAL Constipation 11/23/16 09:00 12/23/16 08:59 Promethazine HCl/ Codeine (Phenergan with Codeine) 5 ml Q4H PRN ORAL For Cough 11/23/16 09:00 12/23/16 08:59 Temazepam (Restoril) 15 mg HSPRN PRN ORAL Insomnia 11/23/16 21:00 11/30/16 20:59 Vancomycin HCl 750 mg/Dextrose 275 ml @ 183.708 mls/hr Q24H IVPB 11/24/16 10:00 11/29/16 09:59 Vancomycin HCl 1 ea 1 ea DAILY PRN MISC Per rx protocol 11/23/16 09:00 12/23/16 08:59 Earline Baldwin NP (Vanchtein) Nov 24, 2016 08:31
[2016-11-24] MEDS ORDERED: OLANZapine 2.5mg tab ORAL SCH (09:00)
[2016-11-24 09:45] LABS: BAND NEUTROPHILS % (MANUAL) 4 % (0-8); BASOPHILS % (MANUAL) 0 % (0-2); EOSINOPHILS % (MANUAL) 1 % (0-3); LYMPHOCYTES % (MANUAL) 5 % (20-45); NEUTROPHILS % (MANUAL) 88 % (45-75); PLATELET ESTIMATE ADEQUATE; PLATELET MORPHOLOGY NORMAL; TOTAL CELLS COUNTED 100
[2016-11-24 09:46] LABS: HYPOCHROMASIA 1+; MICROCYTES 1+; STOMATOCYTES 1+
[2016-11-24] MEDS: Cefepime HCl 1 GM in D5W 55 ML IV SCH (10:25)
[2016-11-24] MEDS: Heparin 5000 units/ml inj SUBQ SCH ×2 (10:27→22:10)
[2016-11-24] MEDS: Vancomycin 750mg/D5W 275ml IVPB SCH ×2 (11:20)
--- NOTE | 2016-11-24 11:26 | Diagnostic Imaging Report ---
Indication: Abnormal chest sounds Technique: One view of the chest Comparison: 11/23/2016 Findings: Calcifications are seen in the left pulmonary hilum. There is central bronchial wall thickening, suspect on a chronic basis. Bilateral interstitial prominence appears slightly improved. There is probably some pleural fluid on the left, unchanged Impression: Slightly improved interstitial edema, over one day Chronic interstitial disease and evidence of old granulomatous disease, unchanged Suspect small left pleural effusion
[2016-11-24] MEDS ORDERED: NS 275ml ONE (11:55)
[2016-11-24] MEDS ORDERED: Tubing IV Secondary IV ONE (11:55)
[2016-11-24] MEDS ORDERED: D5 1/2NS 1000ml IV ONE (11:55)
[2016-11-24 11:56] VITALS: BP 139/65
--- NOTE | 2016-11-24 15:58 | Infectious Diseases Prog Note ---
Assessment/Plan Assessment/Plan ASSESSMENT: 81-year-old [place]-speaking female with a history of dementia, now admitted with leukocytosis, altered level of consciousness, possible early pneumonia versus congestive heart failure exacerbation with a recent hospitalization for similar ALOC, with no infectious etiology identified previously. Acute encephalopathy superimposed on dementia pending NCHCT today leukocytosis repeat CXR today with small L pleural effusion and perhaps subtle early pneumonia, but not conclusive slight decreased on empiric abx otherwise nonfocal exam r/o UTI probable pneumonia r/o occult bacteremia anion gap w/o acidosis, now closed VBG yesterday with very reassuring venous O2 sats of 89% c/w good peripheral tissue perfusion hyponatremia hypokalemia Elevated BNP Subclinical hyperthyroidism decreased TSH, nl free T4, mildly abn total T3 Plan: Continue empiric intravenous cefepime and vancomycin D#2 f/u Two sets of blood cultures now. f/u u/a. will obtain ucx if pyuria present f/u noncontrast head CT f/u sputum cx continue to assess for other noninfectious etiologies for altered sensorium; correct hyperglycemia, correct electrolytes. follow temperature curve, has remained afebrile. Subjective ROS Limited/Unobtainable: Yes Allergies: Coded Allergies: No Known Allergies (Unverified , 11/20/16) Objective Vital Signs Last 24 Hour Vital Signs Date Time Temp Pulse Resp B/P Pulse Ox O2 Delivery O2 Flow Rate FiO2 11/24/16 11:56 98.8 73 18 139/65 97 Room Air 11/24/16 08:21 171/82 11/24/16 08:00 99.1 77 18 171/72 96 Room Air 11/24/16 07:30 96 Room Air 21 11/24/16 07:30 78 18 Room Air 21 11/24/16 03:58 98.1 88 20 128/42 93 Room Air 11/24/16 01:22 184/94 11/24/16 00:00 99 20 184/94 95 Room Air 11/23/16 20:00 97.7 92 20 94 Room Air 11/23/16 16:00 98.2 96 20 172/96 93 Room Air Height (Feet): 5 Height (Inches): 1.00 Weight (Pounds): 110 Objective HEENT: She does not have an enlarged thyroid. Oral mucosa is dry, but there is no pharyngeal erythema or exudate. She has no cervical lymphadenopathy. NECK: Supple. CARDIOVASCULAR: She has a regular rate and rhythm. She has a 2/6 systolic ejection murmur, heard best over the left upper sternal border and her PMI is not displaced. LUNGS: Clear to auscultation bilaterally, but with poor inspiratory effort. not on supplemental O2. ABDOMEN: Soft. No rebound. She did appear to have pain in the right upper quadrant that was not reproducible exam finding. GENITOURINARY: No Harrison in place. No external genitourinary lesions. SKIN: There is no skin rash. There is no petechia. There is no peripheral cyanosis or mottling in extremities. EXTREMITIES: She has 1+ bilateral lower extremity pitting edema. Peripheral pulses are intact throughout. NEUROLOGIC: Moves all four extremities spontaneously. withdraws b/l arms seemingly in pain. pending u/a, blood cx, sputum cx. Radiology pending [facility] Patient : GUIDO CABEZAS Referring Physician: Ifeanyi Cooper M.D. ID Number: [id number] Service Date: 11/24/16 : 1935 Report Date: 11/24/16 Gender: F Accession No.: [id number] Location: 4E Procedure: XRAY Chest 1v Indication: Abnormal chest sounds Technique: One view of the chest Comparison: 11/23/2016 Findings: Calcifications are seen in the left pulmonary hilum. There is central bronchial wall thickening, suspect on a chronic basis. Bilateral interstitial prominence appears slightly improved. There is probably some pleural fluid on the left, unchanged Impression: Slightly improved interstitial edema, over one day Chronic interstitial disease and evidence of old granulomatous disease, unchanged Suspect small left pleural effusion Laboratory Tests Test 11/23/16 20:58 11/23/16 21:20 11/24/16 06:30 Venous Blood pH Pending Venous Blood Partial Pressure CO2 Pending Venous Blood Partial Pressure O2 Pending Venous Blood HCO3 Pending Venous Blood Total Carbon Dioxide Pending Venous Bld O2 Saturation (Measured) Pending Venous Blood Oxygen Saturation Pending Venous Blood Base Excess Pending Methemoglobin 0.3 Sodium (Blood Gas) mmol/l (135-148) Free Thyroxine 1.29 ng/dL (0.86-1.85) Total Triiodothyronine 0.52 ng/mL (0.80-2.00) L Salicylates Level < 1 mg/dL (10-30) L Acetaminophen Level < 10 ug/mL (10-30) L White Blood Count 14.7 K/UL (4.8-10.8) H Red Blood Count 4.10 M/UL (4.20-5.40) L Hemoglobin 12.0 G/DL (12.0-16.0) Hematocrit 37.1 % (37.0-47.0) Mean Corpuscular Volume 90 FL (80-99) Mean Corpuscular Hemoglobin 29.1 PG (27.0-31.0) Mean Corpuscular Hemoglobin Concent 32.2 G/DL (32.0-36.0) Red Cell Distribution Width 13.3 % (11.6-14.8) Platelet Count 326 K/UL (150-450) Mean Platelet Volume 5.7 FL (6.5-10.1) L Neutrophils (%) (Auto) % (45.0-75.0) Lymphocytes (%) (Auto) % (20.0-45.0) Monocytes (%) (Auto) % (1.0-10.0) Eosinophils (%) (Auto) % (0.0-3.0) Basophils (%) (Auto) % (0.0-2.0) Differential Total Cells Counted 100 Neutrophils % (Manual) 88 % (45-75) H Lymphocytes % (Manual) 5 % (20-45) L Monocytes % (Manual) 2 % (1-10) Eosinophils % (Manual) 1 % (0-3) Basophils % (Manual) 0 % (0-2) Band Neutrophils 4 % (0-8) Platelet Estimate Adequate Platelet Morphology Normal Hypochromasia 1+ Anisocytosis Microcytosis 1+ Stomatocytes 1+ Sodium Level 131 mEQ/L (135-145) L Potassium Level 3.0 mEQ/L (3.4-4.9) L Chloride Level 94 mEQ/L (98-107) L Carbon Dioxide Level 30 mEQ/L (20-30) Anion Gap 7 (5-15) Blood Urea Nitrogen 16 mg/dL (7-23) Creatinine 0.6 mg/dL (0.5-0.9) Estimat Glomerular Filtration Rate mL/min (>60) Glucose Level 490 mg/dL (74-106) #H Calcium Level 8.0 mg/dL (8.6-10.2) L Phosphorus Level 1.6 mg/dL (2.5-4.8) L Albumin 3.3 g/dL (3.5-5.2) L Current Medications Medications (Trade) Dose Ordered Sig/Maggi Route PRN Reason Start Time Stop Time Status Last Admin Dose Admin Acetaminophen (Tylenol) 650 mg Q4H PRN ORAL fever>100.5 11/23/16 09:00 12/23/16 08:59 Al Hydroxide/Mg Hydroxide (Mylanta II) 30 ml Q6H PRN ORAL dyspepsia 11/23/16 09:00 12/23/16 08:59 Albuterol/ Ipratropium 3 ml 3 ml Q4H PRN HHN Shortness of Breath 11/23/16 09:00 11/28/16 08:59 Cefepime HCl/ Dextrose (Maxipime/D5W) 55 ml @ 110 mls/hr DAILY IV 11/23/16 10:00 11/30/16 09:59 11/24/16 10:25 Clonidine HCl (Catapres) 0.1 mg Q4H PRN SL For High Blood Pressure 11/23/16 22:45 12/23/16 22:44 11/24/16 08:21 Dextrose/Sodium Chloride (D5 0.45% NS) 1,000 ml @ 50 mls/hr Q20H IV 11/23/16 11:30 12/23/16 11:29 11/23/16 11:44 Heparin Sodium (Porcine) (Heparin 5000 units/ml) 5,000 units EVERY 12 HOURS SUBQ 11/23/16 09:00 12/23/16 08:59 11/24/16 10:27 Nitroglycerin (Ntg) 0.4 mg Q5M PRN SL Prn Chest Pain 11/23/16 09:00 12/23/16 08:59 Olanzapine (ZyPREXA Zydis) 2.5 mg QHS SL 11/23/16 21:00 12/23/16 20:59 11/23/16 20:57 Ondansetron HCl (Zofran) 4 mg Q6H PRN IVP Nausea & Vomiting 11/23/16 09:00 12/23/16 08:59 Polyethylene Glycol (Miralax) 17 gm DAILYPRN PRN ORAL Constipation 11/23/16 09:00 12/23/16 08:59 Promethazine HCl/ Codeine (Phenergan with Codeine) 5 ml Q4H PRN ORAL For Cough 11/23/16 09:00 12/23/16 08:59 Temazepam (Restoril) 15 mg HSPRN PRN ORAL Insomnia 11/23/16 21:00 11/30/16 20:59 Vancomycin HCl 750 mg/Dextrose 275 ml @ 183.708 mls/hr Q24H IVPB 11/24/16 10:00 11/29/16 09:59 11/24/16 11:20 Vancomycin HCl 1 ea 1 ea DAILY PRN MISC Per rx protocol 11/23/16 09:00 12/23/16 08:59 Ifeanyi Cooper M.D. Nov 24, 2016 15:58
[2016-11-24 16:00] VITALS: BP 140/60
[2016-11-24] MEDS ORDERED: Potassium Phosphate 30 MM in NS 275 ML IV ONE (17:30)
[2016-11-24 20:00] VITALS: BP 150/69
[2016-11-24] MEDS: ZyPREXA Zydis 5mg tab SL SCH (22:04)
[2016-11-25] VITALS: BP 160/63
[2016-11-25 04:00] VITALS: BP 115/54
[2016-11-25 08:00] VITALS: BP 166/76
[2016-11-25 08:01] LABS: BASOPHILS % (AUTO) 0.4 % (0.0-2.0); EOSINOPHILS % (AUTO) 7.4 % (0.0-3.0); LYMPHOCYTES % (AUTO) 15.5 % (20.0-45.0); MEAN CORPUSCULAR HEMOGLOBIN 30.1 PG (27.0-31.0); MEAN CORPUSCULAR HGB CONC 33.3 G/DL (32.0-36.0); MEAN CORPUSCULAR VOLUME 91 FL (80-99); MEAN PLATELET VOLUME 5.7 FL (6.5-10.1); MONOCYTES % (AUTO) 3.2 % (1.0-10.0); NEUTROPHILS % (AUTO) 73.5 % (45.0-75.0); PLATELET COUNT 338 K/UL (150-450); RED BLOOD COUNT 3.95 M/UL (4.20-5.40); RED CELL DISTRIBUTION WIDTH 13.3 % (11.6-14.8); WHITE BLOOD COUNT 11.3 K/UL (4.8-10.8)
[2016-11-25 08:35] LABS: ANION GAP 11 (5-15); CALCIUM 8.8 mg/dL (8.6-10.2); CARBON DIOXIDE 30 mEQ/L (20-30); CHLORIDE 98 mEQ/L (98-107); CREATININE 0.7 mg/dL (0.5-0.9); HEMOLYSIS 1; PHOSPHORUS 2.2 mg/dL (2.5-4.8); SODIUM 139 mEQ/L (135-145)
[2016-11-25] MEDS ORDERED: Tubing IV Secondary IV ONE (09:14)
[2016-11-25] MEDS ORDERED: D5 1/2NS 1000ml IV ONE (09:14)
[2016-11-25] MEDS: Cefepime HCl 1 GM in D5W 55 ML IV SCH (09:15)
[2016-11-25] MEDS: Heparin 5000 units/ml inj SUBQ SCH ×2 (09:22→20:36)
[2016-11-25] MEDS: Vancomycin 750mg/D5W 275ml IVPB SCH ×2 (10:37)
--- NOTE | 2016-11-25 10:55 | Pulmonology Progress Note ---
Assessment/Plan Assessment/Plan ASSESSMENT acute encephalopathy ( 2 to infectious process) on chronic dementia PNA probable UTI HTN hyperglycemia ? DM delirium 2 to [facility] dementia e/lyte imbalance: hypokalemia, hypophosphatemia PLAN OF CARE [facility] floor IVF abx, blood cx preliminary negative ID follows CT head tox screen negative more awake today BP management, Clonidine prn BS- no hx of DM, check HgA1c, on IV with dextrose CXR with developing PNA fup CXR with slightly improved interstitial edema, over one day Chronic interstitial disease and evidence of old granulomatous disease, unchanged O2 HHN prn antitussive prn DVT prophylaxis diet as per ST recommendations - for quality of life with strict aspiration/ reflux precautions and 1 to 1 feeding replace K and P, Mg stable 11/[address] Annabella found that family wants to take the patient on Sunday since they are leaving the country family expressed desire to discharge patient with note that patient was unstable and need nurse during the traveling case discussed and evaluated by supervising physician Subjective Allergies: Coded Allergies: No Known Allergies (Unverified , 11/20/16) Subjective leukocytosis trending down,afebrile no signs of respiratory distress awake, poorly responsive K-3.0; daughter at the bedside patient more awake and responsive today Objective Last 24 Hour Vital Signs Date Time Temp Pulse Resp B/P Pulse Ox O2 Delivery O2 Flow Rate FiO2 11/25/16 08:01 76 20 Room Air 11/25/16 08:00 97.7 77 19 166/76 99 Room Air 11/25/16 04:00 97.9 86 23 115/54 95 Room Air 11/25/16 00:00 97.7 78 18 160/63 94 Room Air 11/24/16 20:10 97 Room Air 21 11/24/16 20:10 82 20 Room Air 11/24/16 20:00 97.7 73 18 150/69 96 Room Air 11/24/16 16:00 99.7 72 18 140/60 97 Room Air 11/24/16 11:56 98.8 73 18 139/65 97 Room Air Intake and Output 11/24/16 11/25/16 19:00 07:00 Intake Total 622.416 ml 250 ml Balance 622.416 ml 250 ml IV Total 622.416 ml 250 ml # Voids 2 Objective GENERAL: NAD, chronically looking elderly female, bedridden HEENT: Dry oral mucosa but no erythema or exudate. NECK: Supple.Trachea midline, NO JVD CARDIOVASCULAR: S1S2, regular, 2/6 systolic ejection murmur at LSB LUNGS: CTAB with moderate air exchange ABDOMEN: Soft, NT/ND, hypoactive bowel sounds SKIN: No rash. EXTREMITIES: 1+ BLE pitting edema. Peripheral pulses intact bilaterally and equal NEUROLOGIC: Moves all four extremities spontaneously. withdraws to tactile stimuli , speaks 1 or 2 words, Microbiology Date/Time Source Procedure Growth Status 11/23/16 06:00 Rectum VRE Culture - Final NO VANCOMYCIN RESISTANT ENTEROCOCCUS ... Complete Laboratory Tests 11/25/16 05:40: White Blood Count 11.3H, Red Blood Count 3.95L, Hemoglobin 11.9L, Hematocrit 35.8L, Mean Corpuscular Volume 91, Mean Corpuscular Hemoglobin 30.1, Mean Corpuscular Hemoglobin Concent 33.3, Red Cell Distribution Width 13.3, Platelet Count 338, Mean Platelet Volume 5.7L, Neutrophils (%) (Auto) 73.5, Lymphocytes ( %) (Auto) 15.5L, Monocytes (%) (Auto) 3.2, Eosinophils (%) (Auto) 7.4H, Basophils (%) (Auto) 0.4, Sodium Level 139, Potassium Level 3.0L, Chloride Level 98, Carbon Dioxide Level 30, Anion Gap 11, Blood Urea Nitrogen 19, Creatinine 0.7, Estimat Glomerular Filtration Rate , Glucose Level 200#H, Calcium Level 8.8, Phosphorus Level 2.2L, Magnesium Level 1.7 Current Medications Medications (Trade) Dose Ordered Sig/Maggi Route PRN Reason Start Time Stop Time Status Last Admin Dose Admin Acetaminophen (Tylenol) 650 mg Q4H PRN ORAL fever>100.5 11/23/16 09:00 12/23/16 08:59 Al Hydroxide/Mg Hydroxide (Mylanta II) 30 ml Q6H PRN ORAL dyspepsia 11/23/16 09:00 12/23/16 08:59 Albuterol/ Ipratropium 3 ml 3 ml Q4H PRN HHN Shortness of Breath 11/23/16 09:00 11/28/16 08:59 Cefepime HCl/ Dextrose (Maxipime/D5W) 55 ml @ 110 mls/hr DAILY IV 11/23/16 10:00 11/30/16 09:59 11/25/16 09:15 Clonidine HCl (Catapres) 0.1 mg Q4H PRN SL For High Blood Pressure 11/23/16 22:45 12/23/16 22:44 11/24/16 08:21 Dextrose/Sodium Chloride (D5 0.45% NS) 1,000 ml @ 50 mls/hr Q20H IV 11/23/16 11:30 12/23/16 11:29 11/24/16 17:43 Heparin Sodium (Porcine) (Heparin 5000 units/ml) 5,000 units EVERY 12 HOURS SUBQ 11/23/16 09:00 12/23/16 08:59 11/25/16 09:22 Nitroglycerin (Ntg) 0.4 mg Q5M PRN SL Prn Chest Pain 11/23/16 09:00 12/23/16 08:59 Olanzapine (ZyPREXA Zydis) 2.5 mg QHS SL 11/23/16 21:00 12/23/16 20:59 11/24/16 22:04 Ondansetron HCl (Zofran) 4 mg Q6H PRN IVP Nausea & Vomiting 11/23/16 09:00 12/23/16 08:59 Polyethylene Glycol (Miralax) 17 gm DAILYPRN PRN ORAL Constipation 11/23/16 09:00 12/23/16 08:59 Promethazine HCl/ Codeine (Phenergan with Codeine) 5 ml Q4H PRN ORAL For Cough 11/23/16 09:00 12/23/16 08:59 Temazepam (Restoril) 15 mg HSPRN PRN ORAL Insomnia 11/23/16 21:00 11/30/16 20:59 Vancomycin HCl 750 mg/Dextrose 275 ml @ 183.708 mls/hr Q24H IVPB 11/24/16 10:00 11/29/16 09:59 11/25/16 10:37 Vancomycin HCl 1 ea 1 ea DAILY PRN MISC Per rx protocol 11/23/16 09:00 12/23/16 08:59 Earline Baldwin NP (Vanchtein) Nov 25, 2016 10:55
[2016-11-25] MEDS ORDERED: KCl 10% 40mEq/30ml liquid ORAL ONE (12:00)
[2016-11-25 12:01] VITALS: BP 162/53
[2016-11-25] MEDS ORDERED: Potassium Phosphate 20 MM in NS 275 ML IV ONE (15:00)
--- NOTE | 2016-11-25 15:26 | Infectious Diseases Prog Note ---
Assessment/Plan Assessment/Plan ASSESSMENT: 81-year-old [place]-speaking female with a history of dementia, now admitted with leukocytosis, altered level of consciousness, possible early pneumonia versus congestive heart failure exacerbation with a recent hospitalization for similar ALOC, with no infectious etiology identified previously. Acute encephalopathy superimposed on dementia pending NCHCT today leukocytosis repeat CXR today with small L pleural effusion and perhaps subtle early pneumonia, but not conclusive. I think UTI is more likely here. slight decreased on empiric abx otherwise nonfocal exam r/o UTI probable pneumonia r/o occult bacteremia anion gap w/o acidosis, now closed VBG yesterday with very reassuring venous O2 sats of 89% c/w good peripheral tissue perfusion hyponatremia hypokalemia Elevated BNP Subclinical hyperthyroidism decreased TSH, nl free T4, mildly abn total T3 Plan: Continue empiric intravenous cefepime and vancomycin D#3, but switch to PO levofloxacin 500mg q24hr for 4 more days in morning in anticipation of discharge. follow temperature curve, has remained afebrile. Subjective ROS Limited/Unobtainable: Yes Allergies: Coded Allergies: No Known Allergies (Unverified , 11/20/16) Objective Vital Signs Last 24 Hour Vital Signs Date Time Temp Pulse Resp B/P Pulse Ox O2 Delivery O2 Flow Rate FiO2 11/25/16 12:01 97.5 79 17 162/53 98 Room Air 11/25/16 08:01 76 20 Room Air 11/25/16 08:00 97.7 77 19 166/76 99 Room Air 11/25/16 04:00 97.9 86 23 115/54 95 Room Air 11/25/16 00:00 97.7 78 18 160/63 94 Room Air 11/24/16 20:10 97 Room Air 21 11/24/16 20:10 82 20 Room Air 11/24/16 20:00 97.7 73 18 150/69 96 Room Air 11/24/16 16:00 99.7 72 18 140/60 97 Room Air Height (Feet): 5 Height (Inches): 1.00 Weight (Pounds): 110 Objective GEN: much more alert today. looks comfortable. HEENT: She does not have an enlarged thyroid. Oral mucosa is dry, but there is no pharyngeal erythema or exudate. She has no cervical lymphadenopathy. NECK: Supple. CARDIOVASCULAR: She has a regular rate and rhythm. She has a 2/6 systolic ejection murmur, heard best over the left upper sternal border and her PMI is not displaced. LUNGS: Clear to auscultation bilaterally, but with poor inspiratory effort. not on supplemental O2. ABDOMEN: Soft. No rebound. She did appear to have pain in the right upper quadrant that was not reproducible exam finding. GENITOURINARY: No Harrison in place. No external genitourinary lesions. SKIN: There is no skin rash. There is no petechia. There is no peripheral cyanosis or mottling in extremities. EXTREMITIES: She has 1+ bilateral lower extremity pitting edema. Peripheral pulses are intact throughout. NEUROLOGIC: Moves all four extremities spontaneously. Microbiology Date/Time Source Procedure Growth Status 11/23/16 21:20 Blood Blood Culture - Preliminary NO GROWTH AFTER 24 HOURS Resulted 11/23/16 21:05 Blood Blood Culture - Preliminary NO GROWTH AFTER 24 HOURS Resulted 11/23/16 06:00 Nasal Nares MRSA Culture - Final NO METHICILLIN RESISTANT STAPH AUREUS... Complete 11/23/16 06:00 Rectum VRE Culture - Final NO VANCOMYCIN RESISTANT ENTEROCOCCUS ... Complete Laboratory Tests Test 11/25/16 05:40 White Blood Count 11.3 K/UL (4.8-10.8) H Red Blood Count 3.95 M/UL (4.20-5.40) L Hemoglobin 11.9 G/DL (12.0-16.0) L Hematocrit 35.8 % (37.0-47.0) L Mean Corpuscular Volume 91 FL (80-99) Mean Corpuscular Hemoglobin 30.1 PG (27.0-31.0) Mean Corpuscular Hemoglobin Concent 33.3 G/DL (32.0-36.0) Red Cell Distribution Width 13.3 % (11.6-14.8) Platelet Count 338 K/UL (150-450) Mean Platelet Volume 5.7 FL (6.5-10.1) L Neutrophils (%) (Auto) 73.5 % (45.0-75.0) Lymphocytes (%) (Auto) 15.5 % (20.0-45.0) L Monocytes (%) (Auto) 3.2 % (1.0-10.0) Eosinophils (%) (Auto) 7.4 % (0.0-3.0) H Basophils (%) (Auto) 0.4 % (0.0-2.0) Sodium Level 139 mEQ/L (135-145) Potassium Level 3.0 mEQ/L (3.4-4.9) L Chloride Level 98 mEQ/L (98-107) Carbon Dioxide Level 30 mEQ/L (20-30) Anion Gap 11 (5-15) Blood Urea Nitrogen 19 mg/dL (7-23) Creatinine 0.7 mg/dL (0.5-0.9) Estimat Glomerular Filtration Rate mL/min (>60) Glucose Level 200 mg/dL (74-106) #H Calcium Level 8.8 mg/dL (8.6-10.2) Phosphorus Level 2.2 mg/dL (2.5-4.8) L Magnesium Level 1.7 mg/dL (1.7-2.5) Current Medications Medications (Trade) Dose Ordered Sig/Maggi Route PRN Reason Start Time Stop Time Status Last Admin Dose Admin Acetaminophen (Tylenol) 650 mg Q4H PRN ORAL fever>100.5 11/23/16 09:00 12/23/16 08:59 Al Hydroxide/Mg Hydroxide (Mylanta II) 30 ml Q6H PRN ORAL dyspepsia 11/23/16 09:00 12/23/16 08:59 Albuterol/ Ipratropium 3 ml 3 ml Q4H PRN HHN Shortness of Breath 11/23/16 09:00 11/28/16 08:59 Cefepime HCl/ Dextrose (Maxipime/D5W) 55 ml @ 110 mls/hr DAILY IV 11/23/16 10:00 11/30/16 09:59 11/25/16 09:15 Clonidine HCl 0.1 mg 0.1 mg Q4H PRN SL For High Blood Pressure 11/23/16 22:45 12/23/16 22:44 11/24/16 08:21 Dextrose/Sodium Chloride (D5 0.45% NS) 1,000 ml @ 50 mls/hr Q20H IV 11/23/16 11:30 12/23/16 11:29 11/24/16 17:43 Heparin Sodium (Porcine) (Heparin 5000 units/ml) 5,000 units EVERY 12 HOURS SUBQ 11/23/16 09:00 12/23/16 08:59 11/25/16 09:22 Nitroglycerin (Ntg) 0.4 mg Q5M PRN SL Prn Chest Pain 11/23/16 09:00 12/23/16 08:59 Olanzapine (ZyPREXA Zydis) 2.5 mg QHS SL 11/23/16 21:00 12/23/16 20:59 11/24/16 22:04 Ondansetron HCl (Zofran) 4 mg Q6H PRN IVP Nausea & Vomiting 11/23/16 09:00 12/23/16 08:59 Polyethylene Glycol (Miralax) 17 gm DAILYPRN PRN ORAL Constipation 11/23/16 09:00 12/23/16 08:59 Potassium Phosphate/Sodium Chloride (Potassium Phosphate/Sodium Chloride) 281.6667 ml @ 46.94 mls/hr ONCE ONCE IV 11/25/16 15:00 11/25/16 21:00 Promethazine HCl/ Codeine (Phenergan with Codeine) 5 ml Q4H PRN ORAL For Cough 11/23/16 09:00 12/23/16 08:59 Temazepam (Restoril) 15 mg HSPRN PRN ORAL Insomnia 11/23/16 21:00 11/30/16 20:59 Vancomycin HCl 750 mg/Dextrose 275 ml @ 183.708 mls/hr Q24H IVPB 11/24/16 10:00 11/29/16 09:59 11/25/16 10:37 Vancomycin HCl 1 ea 1 ea DAILY PRN MISC Per rx protocol 11/23/16 09:00 12/23/16 08:59 Ifeanyi Cooper M.D. Nov 25, 2016 15:26
[2016-11-25 16:00] VITALS: BP 160/102
[2016-11-25 20:00] VITALS: BP 161/99
[2016-11-25] MEDS: ZyPREXA Zydis 5mg tab SL SCH (20:28)
[2016-11-25] MEDS: D5 1/2NS 1,000 ML IV SCH (23:30)
[2016-11-25] MEDS: DuoNeb 0.5-3(2.5)mg/3ml neb HHN PRN (23:47)
[2016-11-26] VITALS: BP 147/110
--- NOTE | 2016-11-26 03:45 | Progress Note ---
SUBJECTIVE: The patient is more lucid. The patient is not speaking Croatian. Family bedside . He is minimally verbal and is not engaged. MENTAL STATUS EXAMINATION: The patient is alert and oriented times self and place. Mood is neutral. Affect is constricted, congruent with mood. Thought process is concrete. Thought content, there is no suicidal or homicidal ideation. ASSESSMENT: Delirium due to general medical condition. PLAN: 1. The patient will be continued on Zyprexa. 2. We will continue to follow and readjust the medications. Jorge Whitaker M.D. DR: ELSA JOB#: [id number] CC:
[2016-11-26 04:00] VITALS: BP 145/95
[2016-11-26] MEDS: D5 1/2NS 1,000 ML IV SCH (06:38)
[2016-11-26 07:50] LABS: BASOPHILS % (AUTO) 0.5 % (0.0-2.0); EOSINOPHILS % (AUTO) 7.5 % (0.0-3.0); LYMPHOCYTES % (AUTO) 19.5 % (20.0-45.0); MEAN CORPUSCULAR HEMOGLOBIN 29.2 PG (27.0-31.0); MEAN CORPUSCULAR HGB CONC 32.1 G/DL (32.0-36.0); MEAN CORPUSCULAR VOLUME 91 FL (80-99); MEAN PLATELET VOLUME 5.4 FL (6.5-10.1); MONOCYTES % (AUTO) 4.8 % (1.0-10.0); NEUTROPHILS % (AUTO) 67.7 % (45.0-75.0); PLATELET COUNT 396 K/UL (150-450); RED BLOOD COUNT 4.08 M/UL (4.20-5.40); RED CELL DISTRIBUTION WIDTH 13.5 % (11.6-14.8); WHITE BLOOD COUNT 11.3 K/UL (4.8-10.8)
[2016-11-26 08:00] VITALS: BP 161/99
[2016-11-26] MEDS: Heparin 5000 units/ml inj SUBQ SCH (08:13)
[2016-11-26 08:16] LABS: ANION GAP 12 (5-15); CALCIUM 8.5 mg/dL (8.6-10.2); CARBON DIOXIDE 30 mEQ/L (20-30); CHLORIDE 99 mEQ/L (98-107); CREATININE 0.6 mg/dL (0.5-0.9); HEMOLYSIS 0; PHOSPHORUS 2.6 mg/dL (2.5-4.8); POTASSIUM 3.5 mEQ/L (3.4-4.9); SODIUM 141 mEQ/L (135-145)
[2016-11-26 08:22] VITALS: BP 161/99
[2016-11-26] MEDS: DuoNeb 0.5-3(2.5)mg/3ml neb HHN PRN (08:46)
[2016-11-26] MEDS ORDERED: Levofloxacin 500mg tab ORAL SCH (09:00)
[2016-11-26] MEDS: Vancomycin 750mg/D5W 275ml IVPB SCH ×2 (10:14)
[2016-11-26] MEDS ORDERED: LORazepam 0.5mg tab ORAL ONE (10:15)
--- NOTE | 2016-11-26 10:22 | Pulmonology Progress Note ---
Assessment/Plan Assessment/Plan ASSESSMENT acute encephalopathy ( 2 to infectious process) on chronic dementia PNA probable UTI HTN hyperglycemia 2 to DM delirium 2 to C dementia e/lyte imbalance: hypokalemia, hypophosphatemia PLAN OF CARE MS floor IVF abx, blood cx negative ID follows CT head tox screen negative more awake today BP management, Clonidine prn BS- no hx of DM, HgA1c -6.8 ( does qualify for diabetes) , CXR with developing PNA fup CXR with slightly improved interstitial edema, over one day Chronic interstitial disease and evidence of old granulomatous disease, unchanged O2 HHN prn antitussive prn DVT prophylaxis diet as per ST recommendations - for quality of life with strict aspiration/ reflux precautions and 1 to 1 feeding lytes stable after replacement 11/25 11/24 via police communications operator Annabella found that family wants to take the patient on Sunday since they are leaving the country family expressed desire to discharge patient with note that patient was unstable and need nurse during the traveling patient unstable for discharge and if the family wants, can sign the patient AMA case discussed and evaluated by supervising physician Subjective Allergies: Coded Allergies: No Known Allergies (Unverified , 11/20/16) Subjective leukocytosis trending down,afebrile no signs of respiratory distress awake, poorly responsive daughter at the bedside patient more awake and responsive Objective Last 24 Hour Vital Signs Date Time Temp Pulse Resp B/P Pulse Ox O2 Delivery O2 Flow Rate FiO2 11/26/16 08:49 81 22 98 Room Air 11/26/16 08:49 83 20 98 Room Air 11/26/16 08:48 83 20 Room Air 11/26/16 08:22 161/99 11/26/16 08:00 97.7 86 18 161/99 98 Room Air 11/26/16 04:00 97.9 69 20 145/95 98 Room Air 11/26/16 00:00 98.2 81 20 147/110 98 Room Air 11/25/16 23:50 92 22 99 Room Air 11/25/16 23:30 89 22 96 Room Air 11/25/16 23:30 21 11/25/16 21:04 86 20 Room Air 21 11/25/16 20:00 98.2 79 20 161/99 98 Room Air 11/25/16 16:44 161/102 11/25/16 16:38 161/102 11/25/16 16:00 99.0 88 18 160/102 97 Room Air 11/25/16 12:01 97.5 79 17 162/53 98 Room Air Intake and Output 11/25/16 11/26/16 19:00 07:00 Intake Total 290 ml 550 ml Balance 290 ml 550 ml Intake Oral 240 ml IV Total 50 ml 550 ml # Voids 2 2 Objective GENERAL: NAD, chronically looking elderly female, bedridden HEENT: Dry oral mucosa but no erythema or exudate. NECK: Supple.Trachea midline, NO JVD CARDIOVASCULAR: S1S2, regular, 2/6 systolic ejection murmur at LSB LUNGS: CTAB with moderate air exchange ABDOMEN: Soft, NT/ND, hypoactive bowel sounds SKIN: No rash. EXTREMITIES: 1+ BLE pitting edema. Peripheral pulses intact bilaterally and equal NEUROLOGIC: Moves all four extremities spontaneously. withdraws to tactile stimuli , speaks 1 or 2 words, Microbiology Date/Time Source Procedure Growth Status 11/23/16 21:20 Blood Blood Culture - Preliminary NO GROWTH AFTER 48 HOURS Resulted 11/23/16 21:05 Blood Blood Culture - Preliminary NO GROWTH AFTER 48 HOURS Resulted Laboratory Tests 11/26/16 05:30: White Blood Count 11.3H, Red Blood Count 4.08L, Hemoglobin 11.9L, Hematocrit 37.0, Mean Corpuscular Volume 91, Mean Corpuscular Hemoglobin 29.2, Mean Corpuscular Hemoglobin Concent 32.1, Red Cell Distribution Width 13.5, Platelet Count 396, Mean Platelet Volume 5.4L, Neutrophils (%) (Auto) 67.7, Lymphocytes ( %) (Auto) 19.5L, Monocytes (%) (Auto) 4.8, Eosinophils (%) (Auto) 7.5H, Basophils (%) (Auto) 0.5, Sodium Level 141, Potassium Level 3.5, Chloride Level 99, Carbon Dioxide Level 30, Anion Gap 12, Blood Urea Nitrogen 14, Creatinine 0.6, Estimat Glomerular Filtration Rate , Glucose Level 283H, Hemoglobin A1c 6.8H, Calcium Level 8.5L, Phosphorus Level 2.6 11/26/16 09:05: Vancomycin Level Trough 10.7 Current Medications Medications (Trade) Dose Ordered Sig/Maggi Route PRN Reason Start Time Stop Time Status Last Admin Dose Admin Acetaminophen (Tylenol) 650 mg Q4H PRN ORAL fever>100.5 11/23/16 09:00 12/23/16 08:59 Al Hydroxide/Mg Hydroxide (Mylanta II) 30 ml Q6H PRN ORAL dyspepsia 11/23/16 09:00 12/23/16 08:59 Albuterol/ Ipratropium (DuoNeb 0.5-3(2.5)mg/3ml) 3 ml Q4H PRN HHN Shortness of Breath 11/23/16 09:00 11/28/16 08:59 11/26/16 08:46 Clonidine HCl (Catapres) 0.1 mg Q4H PRN SL For High Blood Pressure 11/23/16 22:45 12/23/16 22:44 11/26/16 08:22 Dextrose/Sodium Chloride (D5 0.45% NS) 1,000 ml @ 50 mls/hr Q20H IV 11/23/16 11:30 12/23/16 11:29 11/26/16 06:38 Heparin Sodium (Porcine) (Heparin 5000 units/ml) 5,000 units EVERY 12 HOURS SUBQ 11/23/16 09:00 12/23/16 08:59 11/26/16 08:13 Levofloxacin (Levaquin) 500 mg DAILY ORAL 11/26/16 09:00 11/29/16 08:59 11/26/16 08:07 Nitroglycerin (Ntg) 0.4 mg Q5M PRN SL Prn Chest Pain 11/23/16 09:00 12/23/16 08:59 Olanzapine (ZyPREXA Zydis) 2.5 mg QHS SL 11/23/16 21:00 12/23/16 20:59 11/25/16 20:28 Ondansetron HCl (Zofran) 4 mg Q6H PRN IVP Nausea & Vomiting 11/23/16 09:00 12/23/16 08:59 Polyethylene Glycol (Miralax) 17 gm DAILYPRN PRN ORAL Constipation 11/23/16 09:00 12/23/16 08:59 Promethazine HCl/ Codeine (Phenergan with Codeine) 5 ml Q4H PRN ORAL For Cough 11/23/16 09:00 12/23/16 08:59 Temazepam (Restoril) 15 mg HSPRN PRN ORAL Insomnia 11/23/16 21:00 11/30/16 20:59 Vancomycin HCl 750 mg/Dextrose 275 ml @ 183.708 mls/hr Q24H IVPB 11/24/16 10:00 11/29/16 09:59 11/26/16 10:14 Vancomycin HCl 1 ea 1 ea DAILY PRN MISC Per rx protocol 11/23/16 09:00 12/23/16 08:59 Denny ([place])Earline NP Nov 26, 2016 10:22
[2016-11-26] MEDS ORDERED: D5 1/2NS 1000ml IV ONE (11:44)
--- NOTE | 2016-11-27 08:09 | Diagnostic Imaging Report ---
Indications: Altered metal status Technique: Spiral acquisitions obtained through the brain. Angled axial and coronal 5 x 5 mm slices were reconstructed. Total dose length product 1453 mGycm. CTDI vol(s) 70 mGy. Dose reduction achieved using automated exposure control Comparison: MRI brain 11/21/2016 Findings: There is generalized age-related enlargement of ventricles and extra axial CSF spaces. There is extensive periventricular the white matter chronic ischemic change. There is some encephalomalacia in the posterior right parietal lobe. Right basal ganglia calcification is noted, correlating with area of susceptibility artifact on recent MRI. No acute hemorrhage or edema. No mass effect or midline shift. Normal cisneros-white differentiation otherwise. There is ethmoid and sphenoid sinus disease. The mastoids on the left are opacified and somewhat sclerotic. There is an old lacunar infarct in the right thalamus, better appreciated on the coronal reconstructed images. Impression: Negative for acute intracranial bleed or mass effect. 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
--- NOTE | 2016-11-28 10:26 | Discharge Summary ---
Discharge Summary Hospital Course Date of Admission Nov 23, 2016 at 05:43 Date of Discharge Nov 26, 2016 at 11:45 Admitting Diagnosis stupor HPI Amanda Ramirez is a 81 year old female who was admitted on Nov 23, 2016 at 05: 43 for [facility] Hospital Course dc summary #[id number] Discharge Discharge Disposition Patient was signed AMA by family Discharge Diagnoses: Denny (Shantellirwin)Earline NP Nov 28, 2016 10:26
--- NOTE | 2016-11-29 08:16 | Discharge Summary 2 SIG ---
DATE OF ADMISSION: 11/23/2016 DATE OF SIGNING AGAINST MEDICAL ADVICE: 11/26/2016 REASON FOR ADMISSION: 81-year-old [place] speaking female with a history of dementia, hypertension, and diabetes, was brought to ED by her daughter for evaluation of altered mental status. The patient was just discharged from [facility] with intention of leaving the country. Upon evaluation, it was found that she had leukocytosis, WBC -16.3. Chest x-ray revealed evidence of left and right upper lobe infiltrate. UA with possible evidence of UTI. Lactic acid -0.9. Potassium - 3.2 and phosphorus -1.6. Blood sugar -490. The patient was admitted for further management. ADMITTING DIAGNOSES: 1. Altered level of consciousness. 2. Leukocytosis. 3. Pneumonia. 4. Probable urinary tract infection. 5. Hypertension. 6. Hyperglycemia, likely diabetes. HOSPITAL COURSE: The patient was admitted to medical/surgical floor. ID consult along with a psychiatric consult were requested. On the previous admission, the patient undergone MRI of the brain, which revealed no acute changes, but showed sinus disease and white matter changes. CT of the head was ordered nevertheless to rule out any acute abnormality. CT of the head revealed no acute intracranial bleeding or mass effect. It demonstrated chronic and age-related changes, including old right posterior parietal encephalomalacia. 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 Sinus disease. 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 Blood culture were preliminary negative. Unable to obtain urine culture since the patient was incontinent and daughter did not want to catheterize the patient. The patient was treated with empiric antibiotic and was planned to switch to oral antibiotic upon discharge. The patient was initially NPO. When mental status improved, the patient was started on the diet. The patient was able to tolerate diet with one-to-one assistance. The patient had a swallow evaluation done. Speech therapist recommended video swallow evaluation. Family declined the test. When the patient became more awake and alert, the patient was started on diet for quality of life, as recommended by speech therapist. Strict aspiration and reflux precautions were maintained with one-to-one feeding. Psychiatrist had seen and evaluated the patient. Patient was diagnosed with delirium secondary to general medical condition and dementia. The patient was started on low-dose of Zyprexa. Altered level of consciousness was secondary to acute encephalopathy due to the infectious disease as well as electrolyte imbalance. Low potassium and low phosphorus were subsequently replaced .On day of signing against medical advice, both potassium and phosphorus were stable. Blood sugar was managed with sliding scale of insulin. Hemoglobin A1c- 6.8 (diagnostic for diabetes). it was unclear, if the patient or family knew prior about diabetes. . Blood pressure was stable with current regimen. Leukocytosis was trending down; 11.3 on the date of signing against medical advice. Afebrile. Followup chest x-ray revealed improved interstitial edema over one day, chronic interstitial disease and evidence of old granulomatous disease, unchanged. Supplemental oxygen and pulmonary toilet provided as needed. Antitussive provided as needed. DVT prophylaxis provided. Family decided to take the patient on Sunday straight to the airport, because they were leaving the country. Family expressed desire to discharge the patient. despite the fact that patient was improving, the patient was unstable for discharge to travel long hours on the airplane. Risks and consequences were discussed with the family. Family decided to sign against medical advice form. Patient left via ambulance, DISCHARGE DIAGNOSES: 1. Acute encephalopathy on chronic dementia. 2. Pneumonia. 3. Probable urinary tract infection. 4. Hypertension. 5. Hyperglycemia due to diabetes mellitus. 6. Delirium secondary to general medical condition. 7. Dementia. 8. Electrolyte imbalance (hypokalemia and hypophosphatemia), resolved. Sandra Patel M.D. [facility]) N.PAbraham DR: Shiv JOB#: [id number] CC: JUAN
== END 2016-11-26 11:45 | disposition left against medical advice (07) | DRG 193 ==
LOC: EDBD 04:42 → EMR 04:45 → 4E 05:43 → EDBEDREQ 07:45
DX: J18.9 Pneumonia, unspecified organism (principal); G93.40 Encephalopathy, unspecified; E11.65 Type 2 diabetes mellitus with hyperglycemia; F05 Delirium due to known physiological condition; F03.90 Unspecified dementia, unspecified severity, without behavioral disturbance, psychotic disturbance, mood disturbance, and anxiety; N39.0 Urinary tract infection, site not specified; I10 Essential (primary) hypertension; E87.6 Hypokalemia; Z86.73 Personal history of transient ischemic attack (TIA), and cerebral infarction without residual deficits; E83.39 Other disorders of phosphorus metabolism; F41.9 Anxiety disorder, unspecified; Z79.4 Long term (current) use of insulin
CPT/HCPCS: 36415; 70450; 71010; 80048; 80053; 80069; 80202; 80329; 82550; 83036; 83605; 83735; 83880; 84100; 84439; 84443; 84480; 84484; 85007; 85025; 87040; 87081; 93005; 94640; 94664; 94760; J7620